=== PATIENT | female | born 1955 | race Caucasian/White ===

== ENCOUNTER 2016-10-16 17:45 | Emergency (ER) | payer MEDICARE, MEDICAID ==
[2016-10-16 17:58] VITALS: BP 117/94
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
== END 2016-10-16 20:34 | disposition home or self-care (01) ==
LOC: ED 17:45
DX: S19.9XXA Unspecified injury of neck, initial encounter (principal); W18.00XA Striking against unspecified object with subsequent fall, initial encounter; F17.210 Nicotine dependence, cigarettes, uncomplicated; Y92.9 Unspecified place or not applicable; N20.0 Calculus of kidney; I10 Essential (primary) hypertension; K21.9 Gastro-esophageal reflux disease without esophagitis; Z88.5 Allergy status to narcotic agent; Z88.0 Allergy status to penicillin
CPT/HCPCS: 99282

== ENCOUNTER 2017-04-11 01:33 | Emergency (ER) | payer MEDICARE, MEDICAID ==
[2017-04-11 03:13] VITALS: BP 138/97
[2017-04-11] MEDS ORDERED: HYDROcodone/ACETAMIN 5-325 MG* 1 TAB PO ONE (04:39)
[2017-04-11] MEDS ORDERED: Tetan/Diph/Pertus SYR(Tdap)* 0.5 ML SYR(BOOSTRIX) use SYR IM ONE (05:00)
[2017-04-11] MEDS ORDERED: Cephalexin CAP* 500 MG PO ONE (05:01)
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
--- NOTE | 2017-04-11 08:13 | RAD ---
HISTORY: Right great toe injury COMPARISONS: None VIEWS: 3, Frontal, lateral, and oblique views of the first digit of the right foot FINDINGS: BONE DENSITY: Normal. BONES: There is no displaced fracture. JOINTS: There is mild osteoarthritis of the first MTP joint and interphalangeal joints ALIGNMENT: There is no dislocation. SOFT TISSUES: Unremarkable. OTHER FINDINGS: None. IMPRESSION: OSTEOARTHRITIS. NO ACUTE OSSEOUS INJURY. IF SYMPTOMS PERSIST, RECOMMEND REPEAT IMAGING.
== END 2017-04-11 05:22 | disposition home or self-care (01) ==
LOC: ED 01:33
DX: S90.212A Contusion of left great toe with damage to nail, initial encounter (principal); S91.202A Unspecified open wound of left great toe with damage to nail, initial encounter; W23.0XXA Caught, crushed, jammed, or pinched between moving objects, initial encounter; Y93.9 Activity, unspecified; Y92.9 Unspecified place or not applicable; Z23 Encounter for immunization; I10 Essential (primary) hypertension; J45.909 Unspecified asthma, uncomplicated; K21.9 Gastro-esophageal reflux disease without esophagitis; F41.9 Anxiety disorder, unspecified; F32.9 Major depressive disorder, single episode, unspecified; Z87.442 Personal history of urinary calculi; Z96.653 Presence of artificial knee joint, bilateral; Z88.6 Allergy status to analgesic agent; Z88.5 Allergy status to narcotic agent; Z91.040 Latex allergy status; Z91.041 Radiographic dye allergy status; Z88.0 Allergy status to penicillin; Z91.013 Allergy to seafood; F17.210 Nicotine dependence, cigarettes, uncomplicated
CPT/HCPCS: 90471; 90715; 99282; A9270-GY

== ENCOUNTER 2017-07-19 19:07 | Observation (INO) | payer MEDICARE, MEDICAID ==
[2017-07-19] MEDS ORDERED: Aspirin Low Dose CHEW TAB* 81 MG PO ONE (20:04)
[2017-07-19] MEDS ORDERED: NS 0.9% 1000 ML* 1,000 ML IV ONE (20:04)
[2017-07-19 20:33] LABS: Hematocrit 42 % (35-47); Hemoglobin 14.4 g/dl (12.0-16.0); Mean Corpuscular HGB Conc 34 g/dl (31-36); Mean Corpuscular Hemoglobin 32 pg (27-31); Mean Corpuscular Volume 93 fL (80-97); Mean Platelet Volume 9 um3 (7.4-10.4); Red Blood Count 4.54 10^6/ul (4.0-5.4); Red Cell Distribution Width 12 % (10.5-15); White Blood Count 7.9 10^3/ul (3.5-10.8)
[2017-07-19 20:47] LABS: Albumin 4.3 g/dL (3.2-5.2); BUN/Creatinine Ratio 22.1 (8-20); Calcium 9.2 mg/dL (8.6-10.3); EGFR Non-African American 76.2 (>60); Globulin 2.6 g/dL (2-4); Potassium 3.5 mmol/L (3.5-5.0); Total Bilirubin 0.6 mg/dL (0.2-1.0); Total Protein 6.9 g/dL (6.4-8.9)
--- NOTE | 2017-07-19 20:49 | RAD ---
Indication: Chest pain. Single frontal view of the chest performed at 2027 hours was reviewed. Comparison is made with previous exam dated June 23, 2015. No mediastinal shift is noted. Heart is of normal size and configuration. Lung ugalde appear clear. IMPRESSION: NO ACTIVE CARDIOPULMONARY DISEASE IS NOTED.
[2017-07-19 21:19] LABS: TSH (Thyroid Stimulating Horm) 1.39 mcIU/mL (0.34-5.60)
[2017-07-19] MEDS ORDERED: Acetaminophen TAB* 325 MG PO PRN (21:50)
[2017-07-19] MEDS ORDERED: HYDROcodone/ACETAMIN 5-325 MG* 1 TAB PO PRN (21:56)
[2017-07-19] MEDS ORDERED: Amitriptyline TAB* 25 MG PO SCH (22:00)
[2017-07-19] MEDS ORDERED: Topiramate TAB(*) 25 MG PO SCH (22:00)
[2017-07-20] MEDS: Heparin VIAL(*) 5000 UNITS/ML VIAL (FIVE THOUSAND) SUBCUT SCH ×2 (00:32→06:55)
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
[2017-07-20 03:09] LABS: HDL Cholesterol 43.9 mg/dL
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
[2017-07-20 08:10] VITALS: BP 135/70
[2017-07-20] MEDS ORDERED: Regadenoson* 0.4 MG/5 ML SYRINGE ONE (08:30)
[2017-07-20] MEDS ORDERED: Aminophylline IV* 25 MG/ML 10 ML VIAL ONE (08:30)
[2017-07-20] MEDS ORDERED: DULoxetine DR CAP* 60 MG CAP.DR PO SCH (09:00)
[2017-07-20] MEDS ORDERED: Gabapentin CAP(*) 300 MG PO SCH (09:00)
[2017-07-20] MEDS ORDERED: busPIRone TAB* 5 MG PO SCH (09:00)
--- NOTE | 2017-07-20 12:18 | RAD ---
INDICATION: Chest pain COMPARISON: Chest x-ray July 19, 2017 TECHNIQUE: SPECT imaging was performed. Rest images were acquired following the intravenous injection of 10 millicuries of technetium 99m tetrofosmin. The patient declined to perform the stress portion of the imaging. FINDINGS: There are no defects on the rest only images. The cardiac chamber size is normal. IMPRESSION: No scintigraphic evidence of fixed defect on the rest only images. ASSESSMENT: Not applicable.
--- NOTE | 2017-07-21 08:55 | DS ---
DISCHARGE SUMMARY: DATE OF ADMISSION: 07/19/17 DATE OF DISCHARGE: 07/20/17 PRIMARY CARE PHYSICIAN: Flo Acevedo NP. ATTENDING WHILE IN THE HOSPITAL: Dr. Mello Barrios * (DICTATED BY FRANKLIN HUTSON) PRIMARY DISCHARGE DIAGNOSES: 1. Anxiety. 2. Chest pain. SECONDARY DISCHARGE DIAGNOSES: 1. Hypertension, 2. Gastroesophageal reflux disease. 3. Osteoarthritis. 4. Traumatic brain injury. 5. Tobacco abuse. MEDICATIONS ON DISCHARGE: 1. [place] 325 one tab p.o. t.i.d. p.r.n. for pain. 2. Meloxicam 50 mg p.o. daily. 3. BuSpar 7.5 mg p.o. b.i.d. 4. Topamax 25 mg p.o. b.i.d. 5. Amitriptyline 12.5 mg p.o. q.h.s. 6. .Duloxetine DR 60 mg p.o. daily. 7. Gabapentin 900 mg p.o. t.i.d. New medication at discharge: None. STUDIES DONE WHILE IN THE HOSPITAL: 1. Chest x-ray from the emergency department on 07/19/17 read as no active cardiopulmonary disease. 2. EKG from 07/19/[address] segment changes, normal axis, normal sinus rhythm. No other abnormalities. 3. Nuclear medicine scan from 07/20/17 read as no scintillographic evidence of fixed defect on rest images. HOSPITAL COURSE: This is a brief description of patient's presentation; for more details please see the history and physical from Dr. Darleen Pack on . Briefly, patient is a 61-year-old female whose past medical history is significant for hypertension, tobacco abuse, GERD and TBA who presented to the emergency room with complaints of chest pain that radiated to her neck. Patient states that she was having a lot of stress at home. The patient had a previous stress test which was negative. Patient was admitted to rule out acute cardiopulmonary process despite low risk for myocardial infarction. Patient was kept overnight n.p.o. with no acute events besides occasional agitation and anxiety. Patient went to the nuclear stress test in the morning, and only completed the rest portion and then declined to complete stress portion. Patient had no chest pain at this time. Patient insisted on going home. Patient said she would follow up with her primary care doctor for a previous appointment today. PHYSICAL EXAM: Patient refused physical exam. DISCHARGE PLAN: Patient will be discharged home to follow up with her primary care doctor and consider full outpatient stress test. Patient was a low risk for cardiac event upon entering the hospital. Patient should work with her primary care doctor, and consider outpatient therapy for controlling her anxiety and her risk factors for [place], such as smoking. ACTIVITY: As tolerated. DIET: Heart healthy. No caffeine. TIME SPENT ON THIS DISCHARGE: Approximately 30 minutes were spent on this discharge; 50 minutes was spent [id number] with the patient discussing the treatment plan. FRANKLIN HUTSON [id number]/CPS #: [id number] GUSTAVO
== END 2017-07-20 10:02 | disposition home or self-care (01) ==
LOC: ED 19:07 → MEDTELE 21:50
PROVIDERS: ADMIT Hospitalist; ATTEND Internal Medicine
DX: F41.9 Anxiety disorder, unspecified (principal); R07.9 Chest pain, unspecified; I10 Essential (primary) hypertension; K21.9 Gastro-esophageal reflux disease without esophagitis; M19.90 Unspecified osteoarthritis, unspecified site; G89.29 Other chronic pain; Z87.820 Personal history of traumatic brain injury; F17.210 Nicotine dependence, cigarettes, uncomplicated; Z88.0 Allergy status to penicillin; Z88.8 Allergy status to other drugs, medicaments and biological substances; R06.02 Shortness of breath; R00.0 Tachycardia, unspecified
CPT/HCPCS: 36415; 71010; 78451; 80053; 80061; 82550; 82553; 83605; 83690; 83735; 83880; 84443; 84484; 85025; 85379; 85610; 85730; 86140; 93005; 96372; 99283; A9270-GY; A9502; G0378; J0280; J1644; J2785

== ENCOUNTER 2017-12-13 22:21 | Emergency (ER) | payer MEDICARE, MEDICAID ==
[2017-12-13] MEDS ORDERED: Aspirin Low Dose CHEW TAB* 81 MG PO ONE (22:53)
[2017-12-13] MEDS ORDERED: Ondansetron INJ* 2 MG/ML VIAL IV ONE (22:56)
[2017-12-13] MEDS ORDERED: Morphine INJ* 4 MG/ML 1 ML SYRINGE (NEW SYRINGE VERSION) IV ONE (22:56)
[2017-12-13 23:58] LABS: ABS Basophils 0 10^3/ul (0-0.2); ABS Eosinophils 0.2 10^3/ul (0-0.6); ABS Lymphocytes 3.1 10^3/ul (1.0-4.8); ABS Monocytes 0.4 10^3/ul (0-0.8); ABS Neutrophils 3.1 10^3/ul (1.5-7.7); ABS Nucleated RBC 0 10^3/ul; Eosinophil % 2.8 % (0-6); Hematocrit 40 % (35-47); Hemoglobin 13.8 g/dl (12.0-16.0); Lymphocyte % 45.5 % (25-47); Mean Corpuscular HGB Conc 35 g/dl (31-36); Mean Corpuscular Hemoglobin 32 pg (27-31); Mean Corpuscular Volume 93 fL (80-97); Mean Platelet Volume 9 um3 (7.4-10.4); Nucleated Red Blood Cells % 0.1; Platelet Count 212 10^3/ul (150-450); Red Blood Count 4.27 10^6/ul (4.0-5.4); Red Cell Distribution Width 12 % (10.5-15); White Blood Count 6.9 10^3/ul (3.5-10.8)
[2017-12-14 00:06] LABS: INR 0.93 (0.77-1.02)
[2017-12-14 00:13] LABS: EGFR Non-African American 77.1 (>60)
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
[2017-12-14 02:33] VITALS: BP 105/57
--- NOTE | 2017-12-14 03:03 | ED ---
Antonino Shah Julia, scribed for Viry Mason MD on 12/14/17 at 0230 . Progress - Progress Note Progress Note: Addendum to initial chart. - EKG/XRAY/CT Comments: Sinus tachycardia, 116 BPM, Nml axis. Nml interval. No ischemic changes. XRAY: chest - No acute process, as per ED Physician. Course/Dx - Course Course Of Treatment: Patient presents with sudden jaw and chest pain that is currently improved. EKG is of no acute concern. CXR is of no acute concern. Patient had a stress test on 07/20/17. Patient is given Zofran, Morphine, and Aspirin. - Diagnoses Provider Diagnoses: Chest pain The documentation as recorded by the Antonino aamya Julia accurately reflects the service I personally performed and the decisions made by Isabella davis Abdul, MD.
--- NOTE | 2017-12-14 07:50 | RAD ---
INDICATION: Chest pain COMPARISON: July 19, 2017 TECHNIQUE: An AP portable view obtained at 2327 hours is submitted. FINDINGS: Bones/Soft Tissues: There are no acute bony findings. Cardiomediastinal: The cardiomediastinal silhouette is normal. Lungs: There are no infiltrates. Pleura: There are no pleural effusions. Other: None IMPRESSION: No active disease.
== END 2017-12-14 02:38 | disposition home or self-care (01) ==
LOC: ED 22:21
DX: R07.9 Chest pain, unspecified (principal); R68.84 Jaw pain; Z86.79 Personal history of other diseases of the circulatory system; Z87.891 Personal history of nicotine dependence
CPT/HCPCS: 36415; 71045; 80053; 82550; 83735; 84443; 84484; 85025; 85610; 85730; 93005; 96374; 96375; 99283; A9270-GY; J2270; J2405

== ENCOUNTER 2017-12-28 22:15 | Emergency (ER) | payer MEDICARE, MEDICAID ==
--- OUTSIDE RECORDS SUMMARY | 2017-12-28 22:39 | XMS REPORT ---
:1955 External Reference #:[id number] Author Organization [facility] Address [address] [address] Phone [phone] Care Team Providers Name Role Phone Fern Sanchez MD Primary Care Physician Unavailable Payers Type Date Identification Numbers Payment Provider Subscriber Medicare Primary Policy Number: [id number] Medicare Hien Portillo PayID: [id number] [address] [place] [address] Medigap Part B Policy Number: [id number] Medicaid Hien Portillo Group Name: 1 [address] PayID: [id number] [place] [address] Problems Date Description Provider Status Onset: 09/13/2016 Fibromyalgia Flo Acevedo NP Active Onset: 09/13/2016 Depressive disorder Flo Acevedo NP Active Family History Date Family Member(s) Problem(s) Comments General No Current Problems in [facility] Siblings 4 Social History Type Date Description Comments Marital Status Occupation Unemployed ETOH Use consumes 1-2 glasses of wine per week Smoking Heavy tobacco smoker (more than 10 cigarettes/day) Recreational Drug Use Denies Drug Use Exercise Type/Frequency Exercises sporadically Allergies, Adverse Reactions, Alerts Date Description Reaction Status Severity Comments Penicillin active 03/20/2016 Sulfamethoxazole/Trimethoprim active 07/15/2016 Codeine active Moderate Medications Medication Date Status Form Strength Qnty SIG Indications Ordering Provider Buspirone HCL 07/30 Active Tablets 5mg 180ta Take Three F41.9 bs Tablets By Cotton, Mouth Two M.D. Times A Day Cyclobenzaprine 03/11 Active Tablets 5mg 45tab Take One M25.511 Flo HCL s Tablet By YOUNG Acevedo Mouth Every 8 Hours as Needed Meloxicam 03/11 Active Tablets 15mg 30tab Take One M25.511 Flo /2016 s Tablet By YOUNG Acevedo Mouth Every Day With Food Nasonex 08/25 Active Suspension 50mcg/Act 17gm two sprays J01.90 Flo each YOUNG Acevedo nostril once daily Proair HFA 03/05 Active Aerosol 108(90Bas 18uni inhale 1-2 J45.20 Flo e) ts puffs by YOUNG Acevedo mcg/Act mouth every 4-6 hours as needed for shortness of breath Amitriptyline 03/05 Active Tablets 25mg 30tab Take One Flo s Tablet By YOUNG Acevedo Mouth Every Night At Bedtime Omeprazole Active Capsules DR 20mg 30cap 1 by mouth Flo / s every day YOUNG Acevedo Acetaminophen Active Capsules 500mg 1 by mouth twice a day as needed Beaver Active Tablets 5-325mg 1 PO tid prn Pain Topiramate Active Tablets 25mg 60tab Take One Flo / s Tablet By YOUGN Acevedo Mouth Twice A Day Duloxetine HCL Active Caps DR 60mg 30cap Take One Flo / Part s Capsule By YOUNG Acevedo Mouth Once Daily Gabapentin Active Capsules 300mg 270ca Take Three Flo /0000 ps Capsules YOUNG Acevedo By Mouth Three Times A Day Meloxicam 01/27 Hx Tablets 7.5mg 30tab Take 1-2 M25.511 Flo s Tablets By YOUNG Acevedo - Mouth Once 03/11 Daily With Food as Needed Naproxen 12/11 Hx Tablets 500mg 14tab 1 tablet M25.511 Flo /2016 s with food YOUNG Acevedo - by mouth 01/27 twice a day Lidocaine 11/11 Hx Ointment 5% 35.44 apply to M25.511 Flo /2016 0gm painful YOUNG Acevedo - areas 12/11 times a day as needed. Buspirone HCL 10/16 Hx Tablets 7.5mg 60tab take one F41.9 Flo s tablet by Kristina, DIRECTOR OF FINANCE - mouth 07/30 twice a /2016 day Levofloxacin 08/25 Hx Tablets 500mg 10tab one by Joshua.90 Flo s mouth rKistina, DIRECTOR OF FINANCE - daily for 09/04 10 Benzonatate 08/25 Hx Capsules 100mg 30cap take one [facility]. Flo s or two Kristina, DIRECTOR OF FINANCE - capsules 09/01 every hours as needed for cough. Fluticasone 08/21 Hx Suspension 50mcg/Act 16uni [place] 2 J01. Flo Propionate ts Sprays In [facility], DIRECTOR OF FINANCE - Each 08/25 Nostril Every Day Fluticasone 07/15 Hx Suspension 50mcg/Act 16uni 2 sprays 01. Flo Propionate ts each Kristina, DIRECTOR OF FINANCE - nostril 07/27 qd. Doxycycline 07/15 Hx Capsules 100mg 20cap one tablet [facility] Flo Hyclate s twice Kristina, DIRECTOR OF FINANCE - daily for 07/25 10 days. Fluconazole 07/15 Hx Tablets 150mg 2tabs one by J01. Flo mouth february Kristina, DIRECTOR OF FINANCE - repeat in 07/18 3 days needed Hydroxyzine 06/02 Hx Capsules 25mg 60cap Take One F41.9 Flo Pamoate s To Two Kristina, DIRECTOR OF FINANCE - Capsules 10/16 By Mouth Four Times A Day as Needed Vistaril 04/13 Hx Capsules 25mg 60cap 1-2 by 1.9 Flo s mouth four Kristina, DIRECTOR OF FINANCE - times 06/02 daily needed Monistat 3 03/20 Hx Cream 4% 1Tube insert 1 N77.1 appplicate Varn, N.P. - r 04/01 intravagin ally hs x 3 nights. Macrobid 03/20 Hx Capsules 100mg 14cap 1 by mouth s twice a Varn, N.P. - day for 7 No Active 03/05 Hx Unknown Medications /2015 - 03/05 Maxalt-[employer] 05/15 Hx Tablets 10mg 18tab 1 po prn Sivananda, Dispers s february repeat MD Jose Antonio - q 2 hours, 03/05 max tabs/day Omeprazole/Sodiu 05/15 Hx Capsules 20-1100mg Sivananda, m Bicarbonate PoMD norah - 05/15 Omeprazole 05/[address] 20mg 30cap 1 po qd Sivananda, s PoMD norah - 03/05 Gabapentin 05/15 Hx Capsules 300mg 90cap 1 po tid Sivananda, s PoopalMD - 03/05 Propranolol HCL 05/15 Hx Tablets 60mg 30tab 1 po qd Sivananda, s MD Jose Antonio - 03/05 Cymbalta 05/[address] 60mg 30cap 1 po qd Lisaananda, Part s MD Jose Antonio - 03/05 Celebrex 05/15 Hx Capsules 200mg 30cap 1 po qd Lisaananda, s MD Jose Antonio - 03/05 Nortriptyline 05/15 Hx Capsules 25mg 30cap 2 po qhs Sivananda, HCL s PoMD norah - 03/05 Topiramate 05/15 Hx Tablets 100mg Lisaananda, PoMD norah - 03/05 Cephalexin 05/15 Hx Capsules 500mg 21cap tid po Lisaananda, s MD Jose Antonio - 03/05 Hydrocodone-Acet 05/15 Hx Tablets 5/500mg 100ta 1-2 po qid Ludmila, aminophen /2009 bs prn MD Jose Antonio - 03/05 Albuterol 05/15 Hx 1unit 2 puffs po Calvinnda, Inhaler /2009 s qid prn MD Jose Antonio - 03/05 Advair Diskus 05/15 Hx Aerosol 100-50mcg 1unit 1 Lisaanandclaire, /2009 /Dose s inhalation MD Jose Antonio - twice 03/05 daily Diazepam 0000 Hx Tablets 10mg 3tabs one po two Unknown /0000 hours - prior to 03/05 mri, february repeat every one hour if needed prior to mri. Aspirin 81 Low 0000 Hx Chewtabs 81mg Unknown Dose /0000 - 08/30 Immunizations CPT Code Status Date Vaccine Lot # [id number] Given 07/07/2017 Influenza Virus Vaccine, Quadrivalent, Split, Preservative Free [id number] Given 06/04/2016 Flu Vaccine NOS Vital Signs Date Vital Result Comment 12/16/2017 Weight 201.75 lb Heart Rate 93 /min BP Systolic 136 mmHg BP Diastolic 82 mmHg Body Temperature 98.0 F O2 % BldC Oximetry 98 % 08/30/2017 Weight 204.00 lb Heart Rate 97 /min BP Systolic 124 mmHg BP Diastolic 80 mmHg Body Temperature 97.3 F O2 % BldC Oximetry 96 % 07/30/2017 Weight 196.00 lb Heart Rate 104 /min BP Systolic Sitting 132 mmHg BP Diastolic Sitting 78 mmHg Body Temperature 97.7 F O2 % BldC Oximetry 97 % 07/20/2017 Height 63 inches 5'3" Weight 199.00 lb BP Systolic 122 mmHg BP Diastolic 84 mmHg Respiratory Rate 18 /min Body Temperature 96.3 F Pain Level 6 BMI (Body Mass Index) 35.2 kg/m2 04/19/2017 Height 63 inches 5'3" Weight 192.00 lb Heart Rate 100 /min Respiratory Rate 16 /min Pain Level 5 BMI (Body Mass Index) 34.0 kg/m2 03/11/2017 Weight 195.00 lb Heart Rate 111 /min BP Systolic Sitting 136 mmHg BP Diastolic Sitting 88 mmHg O2 % BldC Oximetry 98 % 02/17/2017 Height 63 inches 5'3" Weight 192.00 lb BP Systolic 127 mmHg BP Diastolic 82 mmHg Respiratory Rate 16 /min Pain Level 10 BMI (Body Mass Index) 34.0 kg/m2 01/27/2017 Weight 192.00 lb Heart Rate 106 /min Body Temperature 98.2 F O2 % BldC Oximetry 98 % 12/11/2016 Heart Rate 103 /min BP Systolic 130 mmHg BP Diastolic 90 mmHg O2 % BldC Oximetry 99 % 11/11/2016 Height 63 inches 5'3" Weight 180.00 lb Heart Rate 106 /min BP Systolic 138 mmHg BP Diastolic 86 mmHg Body Temperature 99.8 F O2 % BldC Oximetry 98 % BMI (Body Mass Index) 31.9 kg/m2 10/16/2016 Weight 189.00 lb Heart Rate 96 /min BP Systolic Sitting 140 mmHg BP Diastolic Sitting 88 mmHg Respiratory Rate 15 /min Body Temperature 98.0 F O2 % BldC Oximetry 98 % 09/09/2016 Height 63 inches 5'3" Weight 185.00 lb Heart Rate 101 /min BP Systolic 130 mmHg BP Diastolic 88 mmHg Body Temperature 98.1 F O2 % BldC Oximetry 98 % BMI (Body Mass Index) 32.8 kg/m2 08/25/2016 Weight 185.00 lb with shoes Heart Rate 96 /min BP Systolic Sitting 130 mmHg BP Diastolic Sitting 92 mmHg Body Temperature 97.1 F O2 % BldC Oximetry 96 % 07/15/2016 Height 63 inches 5'3" Weight 200.00 lb Heart Rate 104 /min BP Systolic 141 mmHg BP Diastolic 86 mmHg Body Temperature 99.3 F O2 % BldC Oximetry 97 % BMI (Body Mass Index) 35.4 kg/m2 05/15/2016 Weight 192.00 lb Heart Rate 104 /min BP Systolic Sitting 144 mmHg BP Diastolic Sitting 90 mmHg Body Temperature 98.6 F O2 % BldC Oximetry 98 % 04/01/2016 Weight 192.00 lb with shoes Heart Rate 107 /min BP Systolic Sitting 124 mmHg BP Diastolic Sitting 86 mmHg Body Temperature 98.3 F O2 % BldC Oximetry 98 % 03/20/2016 Weight 192.00 lb Heart Rate 84 /min BP Systolic Sitting 126 mmHg BP Diastolic Sitting 82 mmHg Respiratory Rate 15 /min Body Temperature 98.5 F O2 % BldC Oximetry 98 % 03/05/2016 Height 62.75 inches 5'2.75" Weight 191.25 lb Heart Rate 100 /min BP Systolic Sitting 134 mmHg BP Diastolic Sitting 98 mmHg O2 % BldC Oximetry 98 % BMI (Body Mass Index) 34.1 kg/m2 05/15/2010 Height 64 inches 5'4" Weight 224.00 lb Heart Rate 72 /min BP Systolic Sitting 120 mmHg BP Diastolic Sitting 80 mmHg BMI (Body Mass Index) 38.4 kg/m2 Results Test Date Test Result H/L Range Note Laboratory test finding 12/13/2017 Partial Thrombo 33.1 seconds 26.0- 36.3 Time PTT Inr/Protime 12/13/2017 Inr 0.93 0.77-1.02 CBC Auto Diff 12/13/2017 White Blood Count 6.9 10^3/uL 3.5-10.8 Red Blood Count 4.27 10^6/uL 4.0-5.4 Hemoglobin 13.8 g/dL 12.0-16.0 Hematocrit 40 % 35-47 Mean Corpuscular Volume 93 fL 80-97 Mean Corpuscular Hemoglobin 32 pg High 27-31 Mean Corpuscular HGB Conc 35 g/dL 31-36 Red Cell Distribution Width 12 % 10.5-15 Platelet Count 212 10^3/uL 150-450 Mean Platelet Volume 9 um3 7.4-10.4 Abs Neutrophils 3.1 10^3/uL 1.5-7.7 Abs Lymphocytes 3.1 10^3/uL 1.0-4.8 Abs Monocytes 0.4 10^3/uL 0-0.8 Abs Eosinophils 0.2 10^3/uL 0-0.6 Abs Basophils 0 10^3/uL 0-0.2 Abs Nucleated RBC 0 10^3/uL Granulocyte % 44.7 % 38-83 Lymphocyte % 45.5 % 25-47 Monocyte % 6.4 % 0-7 Eosinophil % 2.8 % 0-6 Basophil % 0.6 % 0-2 Nucleated Red Blood Cells % 0.1 Laboratory test finding 12/13/2017 Magnesium 2.0 mg/dL 1.9-2.7 Creatine Kinase(CK) 64 U/L 10-223 Troponin-I (TnI) 0.00 ng/mL <0.04 TSH (Thyroid Stim Horm) 1.56 mcIU/mL 0.34-5.60 Comp Metabolic Panel 12/13/2017 Sodium 137 mmol/L 133-145 Potassium 3.6 mmol/L 3.5-5.0 Chloride 107 mmol/L 101-111 Co2 Carbon Dioxide 26 mmol/L 22-32 Anion Gap 4 mmol/L 2-11 Glucose 106 mg/dL High 70-100 Blood Urea Nitrogen 15 mg/dL 6-24 Creatinine 0.76 mg/dL 0.51-0.95 BUN/Creatinine Ratio 19.7 8-20 Calcium 9.1 mg/dL 8.6-10.3 Total Protein 6.2 g/dL Low 6.4-8.9 Albumin 3.9 g/dL 3.2-5.2 Globulin 2.3 g/dL 2-4 Albumin/Globulin Ratio 1.7 1-3 Total Bilirubin 0.60 mg/dL 0.2-1.0 Alkaline Phosphatase 47 U/L 34-104 Alt 10 U/L 7-52 Ast 14 U/L 13-39 Egfr Non- 77.1 >60 Egfr 99.2 >60 1 Laboratory test finding 07/19/2017 TSH (Thyroid Stim Horm) 1.39 mcIU/mL 0.34-5.60 CKMB 07/19/2017 CKMB ng/mL 1.9 ng/mL 0.6-6.3 Laboratory test finding 07/19/2017 Lactic Acid 1.1 mmol/L 0.5-2.0 2 CBC Auto Diff 07/19/2017 White Blood Count 7.9 10^3/uL 3.5-10.8 Red Blood Count 4.54 10^6/uL 4.0-5.4 Hemoglobin 14.4 g/dL 12.0-16.0 Hematocrit 42 % 35-47 Mean Corpuscular Volume 93 fL 80-97 Mean Corpuscular Hemoglobin 32 pg High 27-31 Mean Corpuscular HGB Conc 34 g/dL 31-36 Red Cell Distribution Width 12 % 10.5-15 Platelet Count 211 10^3/uL 150-450 Mean Platelet Volume 9 um3 7.4-10.4 Abs Neutrophils 4.3 10^3/uL 1.5-7.7 Abs Lymphocytes 3.0 10^3/uL 1.0-4.8 Abs Monocytes 0.5 10^3/uL 0-0.8 Abs Eosinophils 0.1 10^3/uL 0-0.6 Abs Basophils 0.1 10^3/uL 0-0.2 Abs Nucleated RBC 0.01 10^3/uL Granulocyte % 53.6 % 38-83 Lymphocyte % 38.0 % 25-47 Monocyte % 6.0 % 1-9 Eosinophil % 1.2 % 0-6 Basophil % 1.2 % 0-2 Nucleated Red Blood Cells % 0.1 Inr/Protime 07/19/2017 Inr 0.90 0.89-1.11 Laboratory test finding 07/19/2017 Partial Thrombo Time 31.9 seconds 26.0 -36.3 PTT D Dimer Quantitative < 200 ng/mL Less Than 230 3 B-Type Natriuretic Peptide BNP 17 pg/mL 4 Comp Metabolic Panel 07/19/2017 Sodium 136 mmol/L 133-145 Potassium 3.5 mmol/L 3.5-5.0 Chloride 107 mmol/L 101-111 Co2 Carbon Dioxide 21 mmol/L Low 22-32 Anion Gap 8 mmol/L 2-11 Glucose 92 mg/dL 70-100 Blood Urea Nitrogen 17 mg/dL 6-24 Creatinine 0.77 mg/dL 0.51-0.95 BUN/Creatinine Ratio 22.1 High 8-20 Calcium 9.2 mg/dL 8.6-10.3 Total Protein 6.9 g/dL 6.4-8.9 Albumin 4.3 g/dL 3.2-5.2 Globulin 2.6 g/dL 2-4 Albumin/Globulin Ratio 1.7 1-3 Total Bilirubin 0.60 mg/dL 0.2-1.0 Alkaline Phosphatase 55 U/L 34-104 Alt 14 U/L 7-52 Ast 19 U/L 13-39 Egfr Non- 76.2 >60 Egfr 98.0 >60 5 Laboratory test finding 07/19/2017 Magnesium 2.0 mg/dL 1.9-2.7 Lipase 16 U/L 11.0-82.0 Creatine Kinase(CK) 51 U/L 10-223 C Reactive Protein 2.00 mg/L < 5.00 6 Troponin-I (TnI) 0.00 ng/mL <0.04 Urine Culture And 05/15/2016 Urine Culture SEE RESULT BELOW 7 Sensitivities Laboratory test finding 05/15/2016 Cytology Non-Ticket Collector Or Usher SEE RESULT BELOW 8 Ua Routine 05/15/2016 Ua Specific [place] 1.025 Ua PH 5 Ua Color leandro Ua Appera cloudy Ua WBC neg Ua Protein 30+ Ua Glucose neg Ua Ketones neg Ua Bilirubin neg Ua Urobilinogen normal Ua Nitrite neg Ua Occult Blood large Urine Culture And 03/20/2016 Urine Culture SEE RESULT BELOW 9 Sensitivities Ua Routine 03/20/2016 Ua Specific [place] 1.020 Ua PH 6 Ua Color dark yellow Ua Appera cloudy Ua WBC trace Ua Protein neg Ua Glucose neg Ua Ketones neg Ua Bilirubin neg Ua Urobilinogen neg Ua Nitrite neg Ua Occult Blood small 1 Because ethnic data is not always readily available, this report includes an eGFR for both -Americans and non- Americans. The National Kidney Disease Education Program (NKDEP) does not endorse the use of the MDRD equation for patients that are not between the ages of 18 and 70, are , have extremes of body size, muscle mass, or nutritional status, or are non- or non-. According to the National Kidney Foundation, irrespective of diagnosis, the stage of the disease is based on the level of kidney function: Stage Description GFR(mL/min/1.73 m(2)) 1 Kidney damage with normal or decreased GFR 90 2 Kidney damage with mild decrease in GFR 60-89 3 Moderate decrease in GFR 30-59 4 Severe decrease in GFR 15-29 5 Kidney failure <15 (or dialysis) 2 [facility] Severe Sepsis and Septic Shock Management Bundle Measure requires all lactic acids initially measuring >2.0 mmol/L be repeated. 3 Please note: The following may produce a false positive D Dimer test: - Rheumatoid factor greater than 60 IU/ml - Plasma hemoglobin greater than 0.05 gm/dl - Bilirubin greater than 50 mg/dl - Lipids greater than 1000 mg/dl - FDP greater than 20 ug/ml 4 >100 to <200 pg/mL: likely compensated congestive heart failure (CHF) 200 to 400 pg/mL: likely moderate CHF >400 pg/mL: likely moderate to severe CHF 5 Because ethnic data is not always readily available, this report includes an eGFR for both -Americans and non- Americans. The National Kidney Disease Education Program (NKDEP) does not endorse the use of the MDRD equation for patients that are not between the ages of 18 and 70, are , have extremes of body size, muscle mass, or nutritional status, or are non- or non-. According to the National Kidney Foundation, irrespective of diagnosis, the stage of the disease is based on the level of kidney function: Stage Description GFR(mL/min/1.73 m(2)) 1 Kidney damage with normal or decreased GFR 90 2 Kidney damage with mild decrease in GFR 60-89 3 Moderate decrease in GFR 30-59 4 Severe decrease in GFR 15-29 5 Kidney failure <15 (or dialysis) 6 Acute inflammation: >10.00 7 SEE RESULT BELOW Name: HIEN PORTILLO : [address]: Flo Acevedo NP Acct: [id number] Unit: [id number] AGE: 60 Location: [facility] Re05/15/16 SEX: F Status: REG REF SPEC: [id number] CYN: 05/15/[address]: Flo Acevedo NP REQ: [id number] RECD: 05/15/16 STATUS: COMP _ SOURCE: URINE SPDESC: ORDERED: Urine Culture COMMENTS: [facility] [id number] Procedure Result Reported Site Urine Culture Final 05/17/16- 08 ML No Growth (<1,000 CFU/mL) * ML - MAIN LAB ([facility]) . END OF REPORT * ML=Testing performed at Main Lab DEPARTMENT OF PATHOLOGY, [address] [place] [address] Epifanio Poole M.D. Director [facility] # [id number] 8 SEE RESULT BELOW Name: HIEN PORTILLO : [address]: Flo Acevedo NP Acct: [id number] Unit: [id number] AGE: 60 Location: [facility] Re05/15/16 SEX: F Status: REG REF SPEC: [id number] CYN: 05/15/16 [facility] DR: Flo Acevedo DIRECTOR OF FINANCE REQ: [id number] RECD: 05/15/16 STATUS: SOUT _ ORDERED: THIN PREP NON G COMMENTS: [id number] FINAL DIAGNOSIS Urine, voided: Negative for malignant cells. 1. URINE CLINICAL HISTORY Hematuria GROSS DESCRIPTION 20 mls of cloudy straw colored urine. Signed (signature on file) Epifanio Poole MD 1154 END OF REPORT * ML=Testing performed at Main Lab DEPARTMENT OF PATHOLOGY, [address] [place] [address] Epifanio Poole M.D. Director [facility] # [id number] 9 SEE RESULT BELOW Name: HIEN PORTILLO : [address]: Bibiana Hemphill NP Acct: [id number] Unit: [id number] AGE: 60 Location: [facility] Re03/20/16 SEX: F Status: REG REF SPEC: [id number] CYN: 03/20/16-[address]: Bibiana Hemphill NP REQ: [id number] RECD: 03/20/16-1699 STATUS: COMP _ SOURCE: URINE SPDESC: ORDERED: Urine Culture COMMENTS: [facility] [address] Procedure Result Reported Site Urine Culture Final 03/21/16- 1533 ML No Growth (<1,000 CFU/mL) * ML - MAIN LAB ([facility]) . END OF REPORT * ML=Testing performed at Main Lab DEPARTMENT OF PATHOLOGY, [address] [place] [address] Epifanio Poole M.D. Director [facility] # [id number] Procedures Date CPT Code Description Status 08/10/2017 Mammogram Completed 07/20/2017 08281 EKG, Interpretation Only Completed 07/21/2013 17301 Rad Exam; Foot Limited Completed 07/21/2013 82962 Rad Exam; Foot Limited Completed 07/21/2013 73526 Rad Exam; Ankle Comp Completed 07/21/2013 15799 Rad Exam; Ankle Comp Completed 07/23/2010 Mammogram Completed Encounters Type Date Location Provider CPT E/M Dx Office Visit 08/30/2017 [facility] Bibiana Hemphill, N.P. 24756 L98.9 10:20a - [place] Office Visit 07/30/2017 [facility] [place] [address] R07.89 1:40p - [place] F41.9 G47.30 Office Visit 07/20/2017 6:37a [facility], FRANKLIN Rodriguez 27920 R07.89 Hospitalists I10 Z72.0 F32.9 Office Visit 07/20/2017 1:45p [facility] Endy Burton, [address]30 M47.896 Of [place] AGRAWAL M25.552 Office Visit 07/19/2017 6:37a [facility], Darleen Pack, 04759 R07.89 Hospitalists M.DDanitza F32.9 Z72.0 I10 Office Visit 04/19/2017 1:45p [facility] Endy Burton 82556 M47.896 Of [place] AGRAWAL M47.26 Office Visit 03/11/2017 2:20p [facility] [place] [address] M25.511 [place] M16.12 Office Visit 02/17/2017 3:00p [facility] Of Endy Burton, 32363 M16.12 [place] AGRAWAL M47.896 Office Visit 01/27/2017 4:00p [facility] [place] [address] M25.511 [place] M25.552 Office Visit 12/11/2016 11:40a [facility] [place] [address] M25.511 [place] Office Visit 11/11/2016 4:00p [facility] [place] [address] M25.511 [place] Office Visit 10/16/2016 9:20a [facility] [place] [address] F41.9 [place] Office Visit 09/09/2016 2:20p [facility] [place] [address] R51 [place] Office Visit 08/25/2016 10:40a [facility] [place] [address] J01.90 [place] F41.9 Office Visit 07/15/2016 3:40p [facility] [place] [address] J01.90 [place] Office Visit 05/15/2016 4:20p [facility] - Flo Kristina, DIRECTOR OF FINANCE 48991 R31.9 [place] Office Visit 04/01/2016 4:00p [facility] - Flo Acevedo, DIRECTOR OF FINANCE 64946 M79.7 [place] M25.50 E55.9 Z13.220 Z13.1 Office Visit 03/20/2016 2:40p [facility] Bibiana Hemphill N.P. 03950 N77.1 - [place] N39.0 N76.0 N30.01 Office Visit 03/05/2016 11:00a [facility] - Flo Kristina, DIRECTOR OF FINANCE 05149 M79.7 [place] J45.20 Office Visit 06/26/2015 7:48a [facility], Kp Cardoso D.O. 43563 977.9 Hospitalists 297.1 311 E958.9 Office Visit 06/25/2015 7:48a [facility], [place] D.O. 60454 977.9 Hospitalists 780.09 E958.9 297.1 Office Visit 06/24/2015 7:47a [facility], [place] Card[place] D.O. 95558 977.9 Hospitalists 311 297.1 E958.9 Office Visit 06/23/2015 7:47a [facility], [place] D.O. 08306 977.9 Hospitalists 530.81 E958.9 311 Office Visit 06/22/2015 7:46a [facility], Kp Cardoso D.O. 98282 427.89 Hospitalists 977.9 E958.9 311 Office Visit 06/22/2015 7:45a [facility], Ryley Lai M.D. 18153 977.9 Hospitalists 530.81 401.9 311 Office Visit 04/20/2014 [facility] [place] [address] 786.50 Assoc, Lopez Rich 401.9 530.81 Office Visit 07/21/2013 10:30a [facility] Of Ezekiel Singh, 47927 718.87 C.M.A. M.D. Office Visit 06/08/2012 3:15p [facility] Mariangel Mccall M.D. 30282 346.90 Services Of [employer] Office Visit 05/15/2010 1:40p DO Not Use [employer] At Jose Antonio Keys, 75904 296.82 Karen AGRAWAL 298.9 714.0 Plan of Care 12/16/2017 - Flo Acevedo, NPR07.89 Other chest painNew Orders:Stress Test, Pharmacologic Nuclear (Lexiscan)Comments:I recommend that you undergo a stress test as we discussed.THis was ordered in July but you declined to have it done. If you develop the chest pain again that is not resolving go back to the ER.F41.9 Anxiety disorder, unspecifiedComments:If you decide that you want to increase the Buspar please let me know. I would recommend that you get established with mental health. You can contact [facility] or [facility].You can contact Dr. Jere Allen to see if he is taking new patients.I will submit the referral.
[2017-12-28] MEDS ORDERED: predniSONE TAB* 20 MG PO ONE (23:51)
[2017-12-28] MEDS ORDERED: Ketorolac INJ* 60 MG/2 ML VIAL IM ONE (23:51)
[2017-12-28] MEDS ORDERED: Albuterol/Ipratropium NEB.SOL* Albuterol 2.5 MG/Ipratropium 0.5 MG 3 ML INH ONE (23:52)
[2017-12-29] MEDS ORDERED: Metoprolol Tartrate IV* 1 MG/ML 5 ML VIAL IV ONE (00:51)
[2017-12-29 01:05] LABS: ABS Basophils 0.1 10^3/ul (0-0.2); ABS Eosinophils 0.1 10^3/ul (0-0.6); ABS Lymphocytes 4.6 10^3/ul (1.0-4.8); ABS Monocytes 0.6 10^3/ul (0-0.8); ABS Neutrophils 3.4 10^3/ul (1.5-7.7); ABS Nucleated RBC 0 10^3/ul; Eosinophil % 1.4 % (0-6); Hematocrit 44 % (35-47); Hemoglobin 15.1 g/dl (12.0-16.0); Lymphocyte % 52.1 % (25-47); Mean Corpuscular HGB Conc 35 g/dl (31-36); Mean Corpuscular Hemoglobin 32 pg (27-31); Mean Corpuscular Volume 92 fL (80-97); Mean Platelet Volume 8.9 um3 (7.4-10.4); Nucleated Red Blood Cells % 0; Platelet Count 224 10^3/ul (150-450); Red Blood Count 4.72 10^6/ul (4.0-5.4); Red Cell Distribution Width 12 % (10.5-15); White Blood Count 8.8 10^3/ul (3.5-10.8)
[2017-12-29 02:24] VITALS: BP 119/87
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
--- NOTE | 2017-12-29 07:56 | RAD ---
INDICATION: Chest pain COMPARISON: December 13, 2017 TECHNIQUE: PA and lateral dual-energy views were obtained. FINDINGS: Bones/Soft Tissues: There are no acute bony findings. Cardiomediastinal: The cardiomediastinal silhouette is normal. Lungs: There are no infiltrates. Pleura: There are no pleural effusions. Other: None IMPRESSION: NO ACTIVE DISEASE.
== END 2017-12-29 02:30 | disposition home or self-care (01) ==
LOC: ED 22:15
DX: R07.89 Other chest pain (principal); J44.1 Chronic obstructive pulmonary disease with (acute) exacerbation; R05 Cough; F41.9 Anxiety disorder, unspecified; Z87.891 Personal history of nicotine dependence; I49.3 Ventricular premature depolarization
CPT/HCPCS: 36415; 71046; 80048; 84484; 85025; 85379; 93005; 94640; 96372; 96374; 99283; A9270-GY; J1885; J3490; J7512

== ENCOUNTER 2018-01-11 17:17 | Emergency (ER) | payer MEDICARE, MEDICAID ==
--- OUTSIDE RECORDS SUMMARY | 2018-01-11 17:43 | XMS REPORT ---
:1955 External Reference #:[id number] Author Organization [facility] Address [address] [address] Phone [phone] Care Team Providers Name Role Phone Fern Sanchez MD Primary Care Physician Unavailable Payers Type Date Identification Numbers Payment Provider Subscriber Medicare Primary Policy Number: [id number] Medicare Hien Portillo PayID: [id number] [address] [place] [address] Medigap Part B Policy Number: [id number] Medicaid Hien Portillo Group Name: 1 [address] PayID: [id number] [place] [address] Problems Date Description Provider Status Onset: 09/13/2016 Fibromyalgia Flo Acevedo NP Active Onset: 09/13/2016 Depressive disorder Flo Acevedo NP Active Family History Date Family Member(s) Problem(s) Comments General No Current Problems in [facility] Siblings 4 Social History Type Date Description [...] Form Strength Qnty SIG Indications Ordering Provider Metoprolol 01/07 Active Tablets 25mg 60tab 1 by mouth Flo Hernández /2018 s twice a day YOUNG Acevedo Buspirone HCL 07/30 Active Tablets 5mg 180ta take three F41.9 Flo bs tablets by YOUNG Acevedo mouth two times a day Cyclobenzaprine 03/11 Active Tablets 5mg 45tab Take [...] by mouth twice a day as needed [place] Active Tablets 5-325mg 1 PO tid prn Pain Duloxetine HCL Active Caps DR 60mg 30cap Take One Flo Part s Capsule By YOUNG Acevedo Mouth Once Daily Gabapentin Active Capsules 300mg 270ca Take Three Flo / ps Capsules By YOUNG Acevedo Mouth Three Times A Day Medical Active Unknown Topiramate Active Tablets 25mg 60tab Take One Flo / s Tablet By YOUNG Acevedo Mouth Twice A Day Meloxicam 01/27 Hx Tablets 7.5mg 30tab Take 1-2 M25.511 Flo s Tablets By YOUNG Acevedo - Mouth Once 03/11 Daily With Food as Needed Naproxen 12/11 Hx Tablets 500mg 14tab 1 tablet M25.511 Flo /2016 s with food YOUNG Acevedo - by mouth 01/27 twice a day /2016 Lidocaine 11/11 Hx Ointment 5% 35.44 apply to M25.511 Flo 0gm painful Kristina, TELEPHONE INSTRUMENT SUPERVISOR - areas three 12/11 times a day /2016 as needed. Buspirone HCL 10/16 Hx Tablets 7.5mg 60tab take one F41.9 Flo s tablet by Kristina TELEPHONE INSTRUMENT SUPERVISOR - mouth twice 07/30 a day Levofloxacin 08/25 Hx Tablets 500mg 10tab one by J01.90 Flo s mouth daily Kristina, TELEPHONE INSTRUMENT SUPERVISOR - for 10 days 09/04 Benzonatate 08/25 Hx Capsules 100mg 30cap take one or Joshua01.90 Flo s two Kristina, TELEPHONE INSTRUMENT SUPERVISOR - capsules 09/01 every hours as needed for cough. Fluticasone 08/21 Hx Suspension 50mcg/Act [facility] [place] 2 J01.90 Flo Propionate ts Sprays In Kristina, TELEPHONE INSTRUMENT SUPERVISOR - Each 08/25 Nostril /2015 Every Day Fluticasone 07/15 Hx Suspension 50mcg/Act 16[facility] 2 sprays J01.90 Flo Propionate ts each Kristina, TELEPHONE INSTRUMENT SUPERVISOR - nostril qd. 07/27 Doxycycline 07/15 Hx Capsules 100mg 20cap one tablet J01.90 Flo Hyclate s twice daily Kristina TELEPHONE INSTRUMENT SUPERVISOR - for 10 07/25 days. Fluconazole 07/15 Hx Tablets 150mg 2tabs one by J01.90 Flo mouth february Kristina TELEPHONE INSTRUMENT SUPERVISOR - repeat in 3 07/18 days needed Hydroxyzine 06/02 Hx Capsules 25mg 60cap Take One To F41.9 Flo Pamoate s Two Kristina TELEPHONE INSTRUMENT SUPERVISOR - Capsules By 10/16 Mouth Times A Day as Needed Vistaril 04/13 Hx Capsules 25mg 60cap 1-2 by F41.9 Flo s mouth four Kristina, TELEPHONE INSTRUMENT SUPERVISOR - times daily 06/02 as needed Monistat 3 03/20 Hx Cream 4% 1Tube insert 1 N77.1 appplicater Joby, - intravagina N.P. 04/01 lly hs x nights. Macrobid 03/20 Hx Capsules 100mg 14cap 1 by mouth s twice a day Joby, - for 7 days N.P. 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 05/15 Hx Tablets 10mg 18tab 1 po prn anand Dispers s february repeat , Jayl, - q 2 hours, 03/05 max tabs/day Omeprazole/Sodiu 05/15 Hx Capsules 20-1100mg Sivananda m Bicarbonate , Poopal, - 05/15 Omeprazole 05/[address] 20mg 30cap 1 po qd anand s , Poopal, - 03/05 Gabapentin 05/15 Hx Capsules 300mg 90cap 1 po tid anand s Poopal, - 03/05 Propranolol HCL 05/15 Hx Tablets 60mg 30tab 1 po qd s Poopal, - 03/05 Cymbalta 05/[address] 60mg 30cap 1 po qd Part s Poopal, - 03/05 Celebrex 05/15 Hx Capsules 200mg 30cap 1 po qd s Poopal, - 03/05 Nortriptyline 05/15 Hx Capsules 25mg 30cap 2 po qhs ananda HCL s Poopal, - 03/05 Topiramate 05/15 Hx Tablets 100mg , Poopal, - 03/05 Cephalexin 05/15 Hx Capsules 500mg 21cap tid po nd s Poopal, - 03/05 Hydrocodone-Acet 05/15 Hx Tablets 5/500mg 100ta 1-2 po qid Sivananda aminophen bs prn , Poopal, - 03/05 Albuterol 05/15 Hx 1unit 2 puffs po Sivananda Inhaler s qid prn , Poopal, - 03/05 Advair Diskus 05/15 Hx Aerosol 100-50mcg 1unit 1 ananda /Dose s inhalation , Poopal, - twice daily 03/05 Diazepam 00 Hx Tablets 10mg 3tabs one po two Unknown /0000 hours prior - to mri, february 06 every one hour if needed prior to mri. Aspirin 81 Low Hx Chewtabs 81mg Unknown Dose / - 08/30 Medications Administered in Office Medication Date Status Form Strength Qnty SIG Indications Ordering Provider Inj, 12/27/ Administered Injection Jere Chahal Regadenoson, 0.1 2017 DO Sandeep MG FACC Aminophylline 12/27/ Administered Injection Jere SDanitza 2017 DO Sandeep FACC Technetium TC 12/27/ Administered Injection Jere SDanitza 99M Tetrofosmin, 2017 DO Sandeep Per Unit Dose Up FACC To 40 Millicuries Immunizations CPT Code Status Date Vaccine Lot # 61737 Given 07/07/2017 Influenza Virus Vaccine, Quadrivalent, Split, Preservative Free [id number] Given 06/04/2016 Flu Vaccine NOS Vital Signs Date Vital Result Comment 01/10/2018 Weight 202.75 lb Heart Rate 90 /min BP Systolic 132 mmHg BP Diastolic 72 mmHg Body Temperature 98.3 F O2 % BldC Oximetry 97 % 12/16/2017 Weight 201.75 lb Heart Rate 93 [...] Test Date Test Result H/L Range Note Basic Metabolic Panel 12/29/2017 Sodium 140 mmol/L 139-145 Potassium 4.2 mmol/L 3.5-5.0 Chloride 108 mmol/L 101-111 Co2 Carbon Dioxide 24 mmol/L 22-32 Anion Gap 8 mmol/L 2-11 Glucose 117 mg/dL High 70-100 Blood Urea Nitrogen 13 mg/dL 6-24 Creatinine 0.77 mg/dL 0.51-0.95 BUN/Creatinine Ratio 16.9 8-20 Calcium 9.7 mg/dL 8.6-10.3 Egfr Non- 76.0 >60 Egfr 97.7 >60 1 Laboratory test 12/29/2017 D Dimer Quantitative < 200 ng/mL Less Than 230 2 finding Laboratory test 12/29/2017 Troponin-I (TnI) 0.00 ng/mL <0.04 finding CBC Auto Diff 12/29/2017 White Blood Count 8.8 10^3/uL 3.5-10.8 Red Blood Count 4.72 10^6/uL 4.0-5.4 Hemoglobin 15.1 g/dL 12.0-16.0 Hematocrit 44 % 35-47 Mean Corpuscular Volume 92 fL 80-97 Mean Corpuscular Hemoglobin 32 pg High 27-31 Mean Corpuscular HGB Conc 35 g/dL 31-36 Red Cell Distribution Width 12 % 10.5-15 Platelet Count 224 10^3/uL 150-450 Mean Platelet Volume 8.9 um3 7.4-10.4 Abs Neutrophils 3.4 10^3/uL 1.5-7.7 Abs Lymphocytes 4.6 10^3/uL 1.0-4.8 Abs Monocytes 0.6 10^3/uL 0-0.8 Abs Eosinophils 0.1 10^3/uL 0-0.6 Abs Basophils 0.1 10^3/uL 0-0.2 Abs Nucleated RBC 0 10^3/uL Granulocyte % 38.2 % 38-83 Lymphocyte % 52.1 % High 25-47 Monocyte % 7.3 % High 0-7 Eosinophil % 1.4 % 0-6 Basophil % 1.0 % 0-2 Nucleated Red Blood Cells % 0 Order 12/27/2017 Stress Test, <pending> Pharmacologic Nuclear (Lexiscan) Laboratory test 12/13/2017 Partial Thrombo Time 33.1 seconds 26.0-36.3 finding PTT CBC Auto Diff 12/13/2017 White Blood Count [...] 0-2 Nucleated Red Blood Cells % 0.1 Comp Metabolic Panel 12/13/2017 Sodium 137 mmol/L [...] Egfr Non- 77.1 >60 Egfr 99.2 >60 3 Inr/Protime 12/13/2017 Inr 0.93 0.77-1.02 Laboratory test finding 12/13/2017 Magnesium 2.0 mg/dL 1.9-2.7 Creatine Kinase(CK) 64 U/L 10-223 Troponin-I (TnI) 0.00 ng/mL <0.04 TSH (Thyroid Stim Horm) 1.56 mcIU/mL 0.34-5.60 Laboratory test finding 07/19/2017 TSH (Thyroid Stim Horm) 1.39 mcIU/mL 0.34-5.60 CKMB 07/19/2017 CKMB ng/mL 1.9 ng/mL 0.6-6.3 Laboratory test finding 07/19/2017 Lactic Acid 1.1 mmol/L 0.5-2.0 4 CBC Auto Diff 07/19/2017 White Blood Count [...] Quantitative < 200 ng/mL Less Than 230 5 B-Type Natriuretic Peptide BNP 17 pg/mL 6 Comp Metabolic Panel 07/19/2017 Sodium 136 mmol/L [...] Egfr Non- 76.2 >60 Egfr 98.0 >60 7 Laboratory test finding 07/19/2017 Magnesium 2.0 mg/dL 1.9-2.7 Lipase 16 U/L 11.0-82.0 Creatine Kinase(CK) 51 U/L 10-223 C Reactive Protein 2.00 mg/L < 5.00 8 Troponin-I (TnI) 0.00 ng/mL <0.04 Ua Routine 05/15/2016 Ua Specific [place] 1.025 Ua PH 5 Ua Color leandro Ua Appera cloudy Ua WBC neg Ua Protein 30+ Ua Glucose neg Ua Ketones neg Ua Bilirubin neg Ua Urobilinogen normal Ua Nitrite neg Ua Occult Blood large Laboratory test finding 05/15/2016 Cytology Non-Over The Horizon Targeting Supervisor SEE RESULT BELOW 9 Urine Culture And 05/15/2016 Urine Culture SEE RESULT BELOW 10 Sensitivities Urine Culture And 03/20/2016 Urine Culture SEE RESULT BELOW 11 Sensitivities Ua Routine 03/20/2016 Ua Specific [place] 1.020 Ua PH 6 Ua Color dark [...] 5 Kidney failure <15 (or dialysis) 2 Please note: The following may produce a false positive D Dimer test: - Rheumatoid factor greater than 60 IU/ml - Plasma hemoglobin greater than 0.05 gm/dl - Bilirubin greater than 50 mg/dl - Lipids greater than 1000 mg/dl - FDP greater than 20 ug/ml 3 Because ethnic data is not always readily [...] 15-29 5 Kidney failure <15 (or dialysis) 4 [facility] Severe Sepsis and Septic Shock Management Bundle Measure requires all lactic acids initially measuring >2.0 mmol/L be repeated. 5 Please note: The following may produce a false positive D Dimer test: - Rheumatoid factor greater than 60 IU/ml - Plasma hemoglobin greater than 0.05 gm/dl - Bilirubin greater than 50 mg/dl - Lipids greater than 1000 mg/dl - FDP greater than 20 ug/ml 6 >100 to <200 pg/mL: likely compensated congestive heart failure (CHF) 200 to 400 pg/mL: likely moderate CHF >400 pg/mL: likely moderate to severe CHF 7 Because ethnic data is not always readily [...] 15-29 5 Kidney failure <15 (or dialysis) 8 Acute inflammation: >10.00 9 SEE RESULT BELOW Name: HIEN PORTILLO : [address]: Flo Acevedo TELEPHONE INSTRUMENT SUPERVISOR Acct: [id number] Unit: [id number] AGE: 60 Location: [facility] Re05/15/16 SEX: F Status: REG REF SPEC: [id number] CYN: 05/15/[address]: Flo Acevedo TELEPHONE INSTRUMENT SUPERVISOR REQ: [id number] RECD: 05/15/16 STATUS: SOUT _ ORDERED: THIN PREP NON G COMMENTS: [id number] FINAL DIAGNOSIS Urine, voided: Negative for malignant cells. 1. URINE CLINICAL HISTORY Hematuria GROSS DESCRIPTION 20 mls of cloudy straw colored urine. Signed (signature on file) Epifanio Poole MD [id number] END OF REPORT * ML=Testing performed at Main Lab DEPARTMENT OF PATHOLOGY, [address] [place] [address] Epifanio Poole M.D. Director [facility] # [id number] 10 SEE RESULT BELOW Name: FINESSE PORTILLORA : [address]: Flo Acevedo NP Acct: [id number] Unit: [id number] AGE: 60 Location: [facility] Re05/15/16 SEX: F Status: REG REF SPEC: [id number] CYN: 05/15/16-[address]: Flo Acevedo NP REQ: [id number] RECD: 05/15/16 STATUS: COMP _ SOURCE: URINE SPDESC: ORDERED: Urine Culture COMMENTS: [facility] [id number] Procedure Result Reported Site Urine Culture Final 05/17/16- 0809 ML No Growth (<1,000 CFU/mL) * ML - MAIN LAB ([facility]) . END OF REPORT * ML=Testing performed at Main Lab DEPARTMENT OF PATHOLOGY, [address] [place] [address] Epifanio Poole M.D. Director [facility] # [id number] 11 SEE RESULT BELOW Name: HIEN PORTILLO : [address]: Bibiana Hemphill NP Acct: [id number] Unit: [id number] AGE: 60 Location: [facility] Re03/20/16 SEX: F Status: REG REF SPEC: [id number] CYN: 03/20/16-145 [facility] DR: Bibiana Hemphill NP REQ: [id number] RECD: 03/20/16 STATUS: COMP _ SOURCE: URINE SPDESC: ORDERED: Urine Culture COMMENTS: [facility] [id number] Procedure Result Reported Site Urine Culture Final 03/21/16- 1533 ML No Growth (<1,000 CFU/mL) * ML - MAIN LAB ([facility]) . END OF REPORT * ML=Testing performed at Main Lab DEPARTMENT OF PATHOLOGY, [address] [place] [address] Epifanio Poole M.D. Director [facility] # [id number] Procedures Date CPT Code Description Status 12/27/2017 38082 Stress Test Completed 12/27/2017 69195 Myocardial Perfusion Imaging Tomographic (Spect) Completed Multiple Studies 08/10/2017 Mammogram Completed 07/20/2017 45888 EKG, Interpretation Only Completed 07/21/2013 83456 Rad Exam; Foot Limited Completed 07/21/2013 61305 Rad Exam; Foot Limited Completed 07/21/2013 70941 Rad Exam; Ankle Comp Completed 07/21/2013 33232 Rad Exam; Ankle Comp Completed 07/23/2010 Mammogram Completed Encounters Type Date Location Provider CPT E/M Dx Office Visit 12/16/2017 11:40a [facility] [place] [address] R07.89 Ros F41.9 Office Visit 08/30/2017 10:20a [facility] Bibiana Hemphill, N.P. [address] L98.9 - [place] Office Visit 07/30/2017 1:40p [facility] [place] [address] R07.89 - [place] F41.9 G47.30 Office Visit 07/20/2017 6:37a [facility], FRANKLIN Rodriguez [address] R07.89 Hospitalists I10 Z72.0 F32.9 Office Visit 07/20/2017 1:45p [facility] Endy Burton, [address]365 M47.896 Of [place] AGRAWAL M25.552 Office Visit 07/19/2017 6:37a [facility], Darleen Pack, [address]859 R07.89 Hospitalists M.DDanitza F32.9 Z72.0 I10 Office Visit 04/19/2017 1:45p [facility] [place]y [place], [address] M47.896 Of [place] AGRAWAL M47.26 Office Visit 03/11/2017 2:20p [facility] [place] [address] M25.511 [place] M16.12 Office Visit 02/17/2017 3:00p [facility] Of Endy Burton, 38696 M16.12 [place] AGRAWAL M47.896 Office Visit 01/27/2017 4:00p [facility] [place] [address] M25.511 [place] M25.552 Office Visit 12/11/2016 11:40a [facility] [place] [address] M25.511 [place] Office Visit 11/11/2016 4:00p [facility] [place] [address] M25.511 [place] Office Visit 10/16/2016 9:20a [facility] [place] [address] F41.9 [place] Office Visit 09/09/2016 2:20p [facility] [place] [address] R51 [place] Office Visit 08/25/2016 10:40a [facility] [place] [address] J01.90 [place] F41.9 Office Visit 07/15/2016 3:40p [facility] [place] [address] J01.90 [place] Office Visit 05/15/2016 4:20p [facility] - Flo Kristina, TELEPHONE INSTRUMENT SUPERVISOR [address]8557 R31.9 [place] Office Visit 04/01/2016 4:00p [facility] - Flo Acevedo, TELEPHONE INSTRUMENT SUPERVISOR [address]68 M79.7 [place] M25.50 E55.9 Z13.220 Z13.1 Office Visit 03/20/2016 2:40p [facility] Bibiana Joby, N.P. 82428 N77.1 - [place] N39.0 N76.0 N30.01 Office Visit 03/05/2016 11:00a [facility] - Flo Kristina, TELEPHONE INSTRUMENT SUPERVISOR [address]79 M79.7 [place] J45.20 Office Visit 06/26/2015 7:48a [facility], [place] Cardoso D.O. 72263 977.9 Hospitalists 297.1 311 E958.9 Office Visit 06/25/2015 7:48a [facility], [place] D.O. 52128 977.9 Hospitalists 780.09 E958.9 297.1 Office Visit 06/24/2015 7:47a [facility], [place] D.O. 67305 977.9 Hospitalists 311 297.1 E958.9 Office Visit 06/23/2015 7:47a [facility], [place] D.O. 35676 977.9 Hospitalists 530.81 E958.9 311 Office Visit 06/22/2015 7:46a [facility], [place] Card[place] D.O. 14764 427.89 Hospitalists 977.9 E958.9 311 Office Visit 06/22/2015 7:45a [facility], Ryley Lai M.D. 51913 977.9 Hospitalists 530.81 401.9 311 Office Visit 04/20/2014 11:03a [facility] [place], [address] 786.50 Assoc, Lopez Rich 401.9 530.81 Office Visit 07/21/2013 10:30a [facility] Ezekiel Singh, 11140 718.87 C.MOsito Rich Office Visit 06/08/2012 3:15p [facility] Mariangel Mcclal M.D. 95183 346.90 Services Of [facility] Office Visit 05/15/2010 1:40p DO Not Use [facility] Antonio Keys, 56777 296.82 Karen AGRAWAL 298.9 714.0 Plan of Care Future Appointment(s):01/12/2018 3:00 pm - Im Nurse Holter Monitor at [facility] - Ayyjgoruc37/10/2018 3:00 pm - Im Nurse Holter Monitor at [facility] - Bqxgyflan75/09/2018 - Flo Acevedo NPI49.9 Cardiac arrhythmia, unspecifiedNew Orders:Holter MonitorComments:When in the ER it was noted that you had a lot of PVCs, or extra beats. I have ordered a holter monitor to further evaluate. Continue taking the metoprolol twice daily.J44.9 Chronic obstructive pulmonary disease, unspecifiedComments:If you find that you are needing the ProAir more than 4 times a week please let me know.R07.82 Intercostal painComments:You can use the Biofreeze on the area of pain. You can use ice also.Continue taking the meloxicam with food.
[2018-01-11] MEDS ORDERED: Aspirin 81 mg CHEW TAB* 81 MG TAB.CHEW PO ONE (18:29)
[2018-01-11 18:41] LABS: ABS Basophils 0.1 10^3/ul (0-0.2); ABS Eosinophils 0.2 10^3/ul (0-0.6); ABS Lymphocytes 2.8 10^3/ul (1.0-4.8); ABS Monocytes 0.5 10^3/ul (0-0.8); ABS Nucleated RBC 0 10^3/ul; Eosinophil % 1.9 % (0-6); Hematocrit 47 % (35-47); Hemoglobin 16.1 g/dl (12.0-16.0); Lymphocyte % 32.5 % (25-47); Mean Corpuscular HGB Conc 35 g/dl (31-36); Mean Corpuscular Hemoglobin 32 pg (27-31); Mean Corpuscular Volume 93 fL (80-97); Mean Platelet Volume 8.6 um3 (7.4-10.4); Nucleated Red Blood Cells % 0; Platelet Count 244 10^3/ul (150-450); Red Blood Count 5.02 10^6/ul (4.0-5.4); Red Cell Distribution Width 13 % (10.5-15); White Blood Count 8.6 10^3/ul (3.5-10.8)
--- NOTE | 2018-01-11 18:50 | RAD ---
Indication: Sudden onset epigastric pain radiating to the LEFT jaw. Associated shortness of breath and diaphoresis. History of tobacco use. Comparison: December 28, 2017 Technique: Upright AP 1834 hours Report: Elevated lung volumes based on correlation with the prior exam with increased AP thoracic diameter. Clear lungs and pleural spaces. Negative for pneumothorax. The heart, pulmonary vasculature, and mediastinal contours are unremarkable. Negative for free air beneath the diaphragm. Postsurgical change of bilateral AC joint resection or potentially posttraumatic osteolysis. Surgical anchor at the RIGHT humeral head. Probable calcific tendinopathy at the LEFT rotator cuff. IMPRESSION: Stigmata of probable chronic obstructive pulmonary disease. No acute cardiopulmonary process evident.
[2018-01-11 19:00] LABS: EGFR Non-African American 67.8 (>60)
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
[2018-01-11 22:53] VITALS: BP 115/75
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
== END 2018-01-11 22:56 | disposition home or self-care (01) ==
LOC: ED 17:17
DX: R07.9 Chest pain, unspecified (principal); R42 Dizziness and giddiness; Z87.891 Personal history of nicotine dependence
CPT/HCPCS: 36415; 71045; 80053; 83605; 84484; 85025; 93005; 99284; A9270-GY

== ENCOUNTER 2018-01-15 20:10 | Emergency (ER) | payer MEDICARE, MEDICAID ==
[2018-01-15 21:43] LABS: Urine Appearance Cloudy; Urine Blood 1+ (Negative); Urine Color Yellow; Urine Ketones Negative (Negative); Urine Protein Negative (Negative); Urine Specific Gravity 1.012 (1.010-1.030); Urine Urobilinogen Negative (Negative)
[2018-01-15 22:21] LABS: ABS Basophils 0 10^3/ul (0-0.2); ABS Eosinophils 0.1 10^3/ul (0-0.6); ABS Lymphocytes 2.4 10^3/ul (1.0-4.8); ABS Monocytes 0.6 10^3/ul (0-0.8); ABS Neutrophils 6.5 10^3/ul (1.5-7.7); ABS Nucleated RBC 0 10^3/ul; Eosinophil % 0.7 % (0-6); Hematocrit 42 % (35-47); Hemoglobin 14.2 g/dl (12.0-16.0); Lymphocyte % 25.2 % (25-47); Mean Corpuscular HGB Conc 34 g/dl (31-36); Mean Corpuscular Hemoglobin 32 pg (27-31); Mean Corpuscular Volume 94 fL (80-97); Mean Platelet Volume 8.5 um3 (7.4-10.4); Nucleated Red Blood Cells % 0.1; Platelet Count 209 10^3/ul (150-450); Red Blood Count 4.43 10^6/ul (4.0-5.4); Red Cell Distribution Width 12 % (10.5-15); White Blood Count 9.6 10^3/ul (3.5-10.8)
[2018-01-15 22:29] LABS: EGFR Non-African American 68.7 (>60)
[2018-01-16 00:30] VITALS: BP 130/76
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
== END 2018-01-16 01:00 | disposition home or self-care (01) ==
LOC: ED 20:10
DX: F43.25 Adjustment disorder with mixed disturbance of emotions and conduct (principal); R00.0 Tachycardia, unspecified; N20.0 Calculus of kidney; I10 Essential (primary) hypertension; J45.909 Unspecified asthma, uncomplicated; K21.9 Gastro-esophageal reflux disease without esophagitis; F41.9 Anxiety disorder, unspecified; F32.9 Major depressive disorder, single episode, unspecified; Z91.041 Radiographic dye allergy status; Z91.040 Latex allergy status; Z88.5 Allergy status to narcotic agent; Z91.013 Allergy to seafood; Z87.891 Personal history of nicotine dependence; Z88.0 Allergy status to penicillin
CPT/HCPCS: 36415; 80053; 80307; 80320; 80329; 81003; 81015; 84443; 85025; 87086; 93005; 99285; G0480

== ENCOUNTER 2018-03-26 12:00 | Emergency (ER) | payer MEDICARE, MEDICAID ==
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
--- NOTE | 2018-03-26 13:33 | RAD ---
INDICATION: Fell out of bed. Left hip pain COMPARISON: Left hip February 17, 2017 TECHNIQUE: An AP view of the pelvis and AP views of the hip in neutral and abducted position were obtained FINDINGS: Bones: There are no acute bony findings. Joint spaces: There is minor symmetric osteoarthritic change about each hip. SI joints/symphysis: The SI joints and symphysis are intact. Other: None IMPRESSION: NO ACUTE BONY FINDINGS. MINOR OSTEOARTHRITIC FINDINGS.
[2018-03-26 14:36] VITALS: BP 161/86
== END 2018-03-26 14:34 | disposition home or self-care (01) ==
LOC: ED 12:00
DX: M16.12 Unilateral primary osteoarthritis, left hip (principal); Z79.899 Other long term (current) drug therapy; Z88.0 Allergy status to penicillin; Z88.5 Allergy status to narcotic agent; I10 Essential (primary) hypertension; K21.9 Gastro-esophageal reflux disease without esophagitis; F17.210 Nicotine dependence, cigarettes, uncomplicated
CPT/HCPCS: 99282

== ENCOUNTER 2018-09-04 11:44 | Emergency (ER) | payer MEDICARE, MEDICAID ==
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
[2018-09-04 13:59] VITALS: BP 138/74
== END 2018-09-04 13:53 | disposition home or self-care (01) ==
LOC: ED 11:44
DX: M25.512 Pain in left shoulder (principal); M25.511 Pain in right shoulder; S20.219A Contusion of unspecified front wall of thorax, initial encounter; Y04.2XXA Assault by strike against or bumped into by another person, initial encounter; Y92.039 Unspecified place in apartment as the place of occurrence of the external cause; Z96.653 Presence of artificial knee joint, bilateral; Z91.041 Radiographic dye allergy status; Z91.040 Latex allergy status; Z88.5 Allergy status to narcotic agent; Z88.0 Allergy status to penicillin; Z91.013 Allergy to seafood; F17.210 Nicotine dependence, cigarettes, uncomplicated
CPT/HCPCS: 71045; 99281

== ENCOUNTER 2019-03-02 21:34 | Emergency (ER) | payer MEDICARE, MEDICAID ==
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
--- OUTSIDE RECORDS SUMMARY | 2019-03-02 22:06 | XMS REPORT | Continuity of Care Document ---
:1955 External Reference #:[id number] Author Name [facility] [employer] Care Team Providers Name Role Phone Fern Sanchez MD Primary Care Physician Unavailable Payers Date Identification Numbers Payment Provider Subscriber Policy Number: [id number] Medicare Hien Portillo PayID: [id number] [address] [place] [address] Policy Number: [id number] Medicaid Hien Portillo Group Name: 1 1 [address] PayID: [id number] [place] [address] Problems Active Problems Provider Date Fibromyalgia Flo Acevedo NP Onset: 09/13/2016 Depressive disorder Flo Acevedo NP Onset: 09/13/2016 Family History Date Family Member(s) Observation Comments General No Current Problems in [facility] Siblings 4 Social History Type Date Description Comments Sex Unknown Marital Status Occupation Unemployed ETOH Use consumes 1-2 glasses of wine per week Recreational Drug Use Denies Drug Use Tobacco Use Start: Unknown Light tobacco smoker (10 or fewer cigarettes/day) Smoking Status Reviewed: 02/22/19 Light tobacco smoker (10 or fewer cigarettes/day) Exercise Type/Frequency Exercises sporadically Allergies, Adverse Reactions, Alerts Active Allergies Reaction Severity Comments Date Penicillin Sulfamethoxazole/Trimethoprim 03/20/2016 Codeine Moderate 07/15/2016 Medications Active Medications SIG Qnty Indications Ordering Date Provider Metoprolol Tartrate Take One Tablet 60tabs Flo Acevedo NP 01/07/2018 By Mouth Twice A 25mg Tablets Day Buspirone HCL Take Three 180tabs F41.9 Flo Acevedo NP 07/30/2017 5mg Tablets By Mouth Tablets Twice A Day Meloxicam Take One Tablet 30tabs M25.511 Flo Acevedo NP 03/11/2017 15mg Tablets By Mouth Every Day With Food Nasonex two sprays each 17gm J01.90 Flo Acevedo NP 08/25/2016 50mcg/Act nostril once Suspension daily Proair HFA inhale 1-2 puffs 18units J45.20 Flo Acevedo NP 03/05/2016 108(90Base) by mouth every mcg/Act Aerosol 4-6 hours as needed for shortness of breath Amitriptyline HCL take one tablet 30tabs Flo Acevedo NP 03/05/2016 25mg by mouth every Tablets evening Gabapentin Take Three 270caps Flo Acevedo NP 300mg Capsules By Mouth Capsules Three Times A Day Duloxetine HCL Take One Capsule 30caps Flo Acevedo NP 60mg By Mouth Every Caps DR Part Day Topiramate Take One Tablet 60tabs Flo Acevedo NP 25mg Tablets By Mouth Twice A Day Medical Marijuana Unknown [place] 1 PO tid prn Pain Unknown 5-325mg Tablets Acetaminophen 1 by mouth twice Unknown 500mg a day as needed Capsules Omeprazole 1 by mouth every 30caps Flo Acevedo NP 20mg day Capsules DR History Medications Azithromycin 02/22/19 reports not 6tabs J01.90 Dana Montana, 11/09/2018 - 250mg taking take 2 MD 02/22/2019 Tablets tablets today; then one tablet daily Cyclobenzaprine HCL Take One Tablet By 45tabs M25.511 Flo Acevedo, 2016 - 5mg Mouth Every 8 Hours TANK HOOP BENDER 02/22/2019 Tablets as Needed Meloxicam Take 1-2 Tablets By 30tabs M25.511 Flo Acevedo, 01/27/2017 - 7.5mg Tablets Mouth Once Daily TANK HO[employer]ENDER 03/11/2017 With Food as Needed Naproxen 1 tablet with food 14tabs M25.511 Flo Acevedo, 12/11/2016 - 500mg Tablets by mouth twice a T[employer] HO[employer]ENDER 01/27/2017 day Lidocaine apply to painful 35.440gm M25.511 Flo Acevedo, 11/11/2016 - 5% Ointment areas three times a TANK HOOP [employer]ENDER 12/11/2016 day as needed. Buspirone HCL take one tablet by 60tabs F41.9 Flo Acevedo, 10/16/2016 - 7.5mg mouth twice a day T[employer]ER 07/30/2017 Tablets Levofloxacin one by mouth daily 10tabs J01.90 Floelaine Acevedo, 08/25/2016 - 500mg for 10 days T[employer]ER 09/04/2016 Tablets Benzonatate take one or two 30caps J01.90 Flo Kristina, 08/25/2016 - 100mg capsules every 8 [employer]ANK HO[employer]ENDER 09/01/2016 Capsules hours as needed for cough. Fluticasone [place] 2 Sprays In 16units J01.90 Flo Kristina 08/21/2016 - Propionate Each Nostril Every TANK HO[employer]ENDER 08/25/2016 50mcg/Act Day Suspension Fluconazole one by mouth may 2tabs J01.90 Floelaine Acevedo, 07/15/2016 - 150mg repeat in 3 days as TANK HO[employer]ENDER 07/18/2016 Tablets needed Doxycycline Hyclate one tablet twice 20caps J01.90 Flo Kristina, 07/15/2016 - daily for 10 days. TANK HOOP BENDER 07/25/2016 100mg Capsules Fluticasone 2 sprays each 16units J01.90 Flo Acevedo, 07/15/2016 - Propionate nostril qd. TANK HOOP BENDER 07/27/2016 50mcg/Act Suspension Hydroxyzine Pamoate Take One To Two 60caps F41.9 Floelaine Acevedo, 06/02/2016 - Capsules By Mouth TANK HOOP [employer]ENDER 10/16/2016 25mg Capsules Four Times A Day as Needed Vistaril 1-2 by mouth four 60caps F41.9 Flo Kristina, 04/13/2016 - 25mg Capsules times daily as TANK HOOP BENDER 06/02/2016 needed Monistat 3 insert 1 1Tube N77.1 Bibiana 03/20/2016 - 4% Cream appplicater Varn, N.P. 04/01/2016 intravaginally hs x 3 nights. Macrobid 1 by mouth twice a 14caps Bibiana 03/20/2016 - 100mg Capsules day for 7 days Varn, N.P. 03/27/2016 No Active Medications Unknown 03/05/2016 - 03/05/2016 Advair Diskus 1 inhalation twice 1units Ludmila, 05/15/2010 - daily Poopal, 03/05/2011 100-50mcg/Dose Aerosol Albuterol Inhaler 2 puffs po qid prn 1units Ludmila, 05/15/2010 - PoopalMD 03/05/2011 Hydrocodone-Acetamino 1-2 po qid prn 100tabs Ludmila, 05/15/2010 - phen PoopalMD 03/05/2011 5/500mg Tablets Cephalexin tid po 21caps Calvinndclaire, 05/15/2010 - 500mg PoopalMD 03/05/2016 Capsules Topiramate Ludmila, 05/15/2010 - 100mg PoopalMD 03/05/2011 Tablets Nortriptyline HCL 2 po qhs 30caps Calvinndclaire, 05/15/2010 - 25mg PoopalMD 03/05/2011 Capsules Celebrex 1 po qd 30caps Calvinndclaire, 05/15/2010 - 200mg Capsules PoopalMD 03/05/2011 Cymbalta 1 po qd 30caps Calvinndclaire, 05/15/2010 - 60mg Caps DR Jose Antonio MD 03/05/2011 Part Propranolol HCL 1 po qd 30tabs Ludmila, 05/15/2010 - 60mg PoopalMD 03/05/2011 Tablets Gabapentin 1 po tid 90caps Calvinndclaire, 05/15/2010 - 300mg PoopalMD 03/05/2011 Capsules Omeprazole 1 po qd 30caps Lisaananda, 05/15/2010 - 20mg PoopalMD 03/05/2011 Capsules Omeprazole/Sodium Ludmila, 05/15/2010 - Bicarbonate PoopaMD sarah beth 05/15/2010 20-1100mg Capsules Maxalt-NURSE TRANSITION 1 po prn february repeat 18tabs Lisaananda, 05/15/2010 - 10mg Tablets q 2 hours, max 3 PoopalMD 03/05/2011 Dispers tabs/day Diazepam one po two hours 3tabs Unknown - 10mg Tablets prior to mri, 03/05/2011 repeat every one hour if needed prior to mri. Aspirin 81 Low Dose Unknown - 08/30/2017 81mg Chewtabs Medications Administered in Office Medication SIG Qnty Indications Ordering Provider Date Inj, Regadenoson, 0.1 MG Jere Hopkins, DO FACC 12/27/2017 Injection Aminophylline Jere Hopkins, DO FACC 12/27/2017 Injection Technetium TC 99M Jere Hopkins, DO FAC 12/27/2017 Tetrofosmin, Per Unit Dose Up To 40 Millicuries Injection Immunizations CPT Code Status Date Vaccine Lot # [id number] Given 07/07/2017 Influenza Virus Vaccine, Quadrivalent, Split, Preservative Free [id number] Given 06/04/2016 Flu Vaccine NOS Vital Signs Date Vital Result Comment 02/22/2019 4:30pm Height 63 inches 5'3" Weight 197.00 lb Heart Rate 100 /min BP Systolic Sitting 147 mmHg BP Diastolic Sitting 98 mmHg BP Systolic Recheck 128 mmHg BP Diastolic Recheck 84 mmHg Body Temperature 97.6 F O2 % BldC Oximetry 97 % BMI (Body Mass Index) 34.9 kg/m2 11/09/2018 10:54am Height 63 inches 5'3" Weight 194.00 lb Heart Rate 105 /min BP Systolic Sitting 127 mmHg BP Diastolic Sitting 74 mmHg Body Temperature 98.8 F O2 % BldC Oximetry 97 % BMI (Body Mass Index) 34.4 kg/m2 06/01/2018 11:13am Height 63 inches 5'3" Heart Rate 89 /min BP Systolic 122 mmHg BP Diastolic 72 mmHg Respiratory Rate 18 /min Body Temperature 98.1 F Pain Level 2 05/24/2018 2:03pm Height 63 inches 5'3" Pain Level 6 05/13/2018 1:28pm Height 63 inches 5'3" Weight 199.25 lb Heart Rate 80 /min BP Systolic Sitting 130 mmHg BP Diastolic Sitting 72 mmHg O2 % BldC Oximetry 98 % BMI (Body Mass Index) 35.3 kg/m2 01/10/2018 4:47pm Weight 202.75 lb Heart Rate 90 /min BP Systolic 132 mmHg BP Diastolic 72 mmHg Body Temperature 98.3 F O2 % BldC Oximetry 97 % 12/16/2017 11:38am Weight 201.75 lb Heart Rate 93 /min BP Systolic 136 mmHg BP Diastolic 82 mmHg Body Temperature 98.0 F O2 % BldC Oximetry 98 % 08/30/2017 10:31am Weight 204.00 lb Heart Rate 97 /min BP Systolic 124 mmHg BP Diastolic 80 mmHg Body Temperature 97.3 F O2 % BldC Oximetry 96 % 07/30/2017 1:32pm Weight 196.00 lb Heart Rate 104 /min BP Systolic Sitting 132 mmHg BP Diastolic Sitting 78 mmHg Body Temperature 97.7 F O2 % BldC Oximetry 97 % 07/20/2017 2:01pm Height 63 inches 5'3" Weight 199.00 lb BP Systolic 122 mmHg BP Diastolic 84 mmHg Respiratory Rate 18 /min Body Temperature 96.3 F Pain Level 6 BMI (Body Mass Index) 35.2 kg/m2 04/19/2017 1:36pm Height 63 inches 5'3" Weight 192.00 lb Heart Rate 100 /min Respiratory Rate 16 /min Pain Level 5 BMI (Body Mass Index) 34.0 kg/m2 03/11/2017 2:38pm Weight 195.00 lb Heart Rate 111 /min BP Systolic Sitting 136 mmHg BP Diastolic Sitting 88 mmHg O2 % BldC Oximetry 98 % 02/17/2017 3:51pm Height 63 inches 5'3" Weight 192.00 lb BP Systolic 127 mmHg BP Diastolic 82 mmHg Respiratory Rate 16 /min Pain Level 10 BMI (Body Mass Index) 34.0 kg/m2 01/27/2017 3:59pm Weight 192.00 lb Heart Rate 106 /min Body Temperature 98.2 F O2 % BldC Oximetry 98 % 12/11/2016 11:38am Heart Rate 103 /min BP Systolic 130 mmHg BP Diastolic 90 mmHg O2 % BldC Oximetry 99 % 11/11/2016 4:02pm Height 63 inches 5'3" Weight 180.00 lb Heart Rate 106 /min BP Systolic 138 mmHg BP Diastolic 86 mmHg Body Temperature 99.8 F O2 % BldC Oximetry 98 % BMI (Body Mass Index) 31.9 kg/m2 10/16/2016 9:21am Weight 189.00 lb Heart Rate 96 /min BP Systolic Sitting 140 mmHg BP Diastolic Sitting 88 mmHg Respiratory Rate 15 /min Body Temperature 98.0 F O2 % BldC Oximetry 98 % 09/09/2016 2:06pm Height 63 inches 5'3" Weight 185.00 lb Heart Rate 101 /min BP Systolic 130 mmHg BP Diastolic 88 mmHg Body Temperature 98.1 F O2 % BldC Oximetry 98 % BMI (Body Mass Index) 32.8 kg/m2 08/25/2016 10:39am Weight 185.00 lb with shoes Heart Rate 96 /min BP Systolic Sitting 130 mmHg BP Diastolic Sitting 92 mmHg Body Temperature 97.1 F O2 % BldC Oximetry 96 % 07/15/2016 3:46pm Height 63 inches 5'3" Weight 200.00 lb Heart Rate 104 /min BP Systolic 141 mmHg BP Diastolic 86 mmHg Body Temperature 99.3 F O2 % BldC Oximetry 97 % BMI (Body Mass Index) 35.4 kg/m2 05/15/2016 4:25pm Weight 192.00 lb Heart Rate 104 /min BP Systolic Sitting 144 mmHg BP Diastolic Sitting 90 mmHg Body Temperature 98.6 F O2 % BldC Oximetry 98 % 04/01/2016 4:14pm Weight 192.00 lb with shoes Heart Rate 107 /min BP Systolic Sitting 124 mmHg BP Diastolic Sitting 86 mmHg Body Temperature 98.3 F O2 % BldC Oximetry 98 % 03/20/2016 2:36pm Weight 192.00 lb Heart Rate 84 /min BP Systolic Sitting 126 mmHg BP Diastolic Sitting 82 mmHg Respiratory Rate 15 /min Body Temperature 98.5 F O2 % BldC Oximetry 98 % 03/05/2016 10:49am Height 62.75 inches 5'2.75" Weight 191.25 lb Heart Rate 100 /min BP Systolic Sitting 134 mmHg BP Diastolic Sitting 98 mmHg O2 % BldC Oximetry 98 % BMI (Body Mass Index) 34.1 kg/m2 05/15/2010 1:09pm Height 64 inches 5'4" Weight 224.00 lb Heart Rate 72 /min BP Systolic Sitting 120 mmHg BP Diastolic Sitting 80 mmHg BMI (Body Mass Index) 38.4 kg/m2 Results Test Date Facility Test Result H/L Range Note Laboratory test 06/15/2018 [facility] Cytology SEE RESULT [address] [place] [address] [phone] Drug Abuse 20 01/19/2018 [facility] Urine Amphetamine Negative [address] ng/[place] [address] [phone] Urine Barbiturates Negative ng/mL 3 Urine Benzodiazepines Negative ng/mL 4 Urine Cocaine Negative ng/mL 5 Urine Phencyclidine Negative ng/mL Cutoff: 25 Urine Tetrahydrocannabinol Presumptive Posi <SEE NOTE> Abnormal Cutoff: 50 6 ng/mL Creatinine, Urine 271.6 mg/dL Specific [place] 1.020 pH 5.7 Oxidants Negative 7 Adulterants Comment Normal Codeine, Ur Not Detected ng/mL Cutoff: 25 8 Koegeze-5-gqks-glucuronide, Ur Not Detected ng/mL 9 Morphine, Ur Not Detected ng/mL Cutoff: 25 10 Wrptmupq-6-qicu-glucuronide, U Not Detected ng/mL 11 6-monoacetylmorphine, Ur Not Detected ng/mL Cutoff: 25 12 Hydrocodone, Ur Present ng/mL Abnormal Cutoff: 25 13 Norhydrocodone, Ur Present ng/mL Abnormal Cutoff: 25 14 Dihydrocodeine, Ur Present ng/mL Abnormal Cutoff: 25 15 Hydromorphone, Ur Present ng/mL Abnormal Cutoff: 25 16 Aegihyfthfvbi2yjiptdguzkbdqlu Present ng/mL Abnormal 17 Oxycodone, Ur Not Detected ng/mL Cutoff: 25 18 Noroxycodone, Ur Not Detected ng/mL Cutoff: 25 19 Oxymorphone, Ur Not Detected ng/mL Cutoff: 25 20 Hpptirynihk-4-amuv-glucuronide Not Detected ng/mL 21 Noroxymorphone, Ur Not Detected ng/mL Cutoff: 25 22 Fentanyl, Ur Not Detected ng/mL Cutoff: 2 23 Norfentanyl, Ur Not Detected ng/mL Cutoff: 2 24 Meperidine, Ur Not Detected ng/mL Cutoff: 25 25 Normeperidine, Ur Not Detected ng/mL Cutoff: 25 26 Naloxone, Ur Not Detected ng/mL Cutoff: 25 27 Sfxomugu-4-mfxp-glucuronide, U Not Detected ng/mL 28 Methadone, Ur Present ng/mL Abnormal Cutoff: 25 29 Eddp, Ur Present ng/mL Abnormal Cutoff: 25 30 Propoxyphene, Ur Not Detected ng/mL Cutoff: 25 31 Norpropoxyphene, Ur Not Detected ng/mL Cutoff: 25 32 Tramadol, Ur Not Detected ng/mL Cutoff: 25 33 O-desmethyltramadol, Ur Not Detected ng/mL Cutoff: 25 34 Tapentadol, Ur Not Detected ng/mL Cutoff: 25 35 N-desmethyltapentadol, Ur Not Detected ng/mL Cutoff: 50 36 Turuxdjhoy-uldg-mahilpqdbcb, U Not Detected ng/mL 37 Buprenorphine, Ur Not Detected ng/mL Cutoff: 5 38 Norbuprenorphine, Ur Not Detected ng/mL Cutoff: 5 39 Norbuprenorphine glucuronide Not Detected ng/mL Cutoff: 20 40 Opioid Interpretation See Comment 41 THC Confirmation 01/19/2018 [facility] Urine Carboxy 56 ng/mL [address] [place] [address] [phone] Urine THC Interpretation Positive. 43 CBC Auto Diff 01/15/2018 [facility] White Blood 9.6 10^3/uL N 3.5-10.[address] [place] [address] [phone] Red Blood Count 4.43 10^6/uL N 4.0-5.4 Hemoglobin 14.2 g/dL N 12.0-16.0 Hematocrit 42 % N 35-47 Mean Corpuscular Volume 94 fL N 80-97 Mean Corpuscular Hemoglobin 32 pg High 27-31 Mean Corpuscular HGB Conc 34 g/dL N 31-36 Red Cell Distribution Width 12 % N 10.5-15 Platelet Count 209 10^3/uL N 150-450 Mean Platelet Volume 8.5 um3 N 7.4-10.4 Abs Neutrophils 6.5 10^3/uL N 1.5-7.7 Abs Lymphocytes 2.4 10^3/uL N 1.0-4.8 Abs Monocytes 0.6 10^3/uL N 0-0.8 Abs Eosinophils 0.1 10^3/uL N 0-0.6 Abs Basophils 0 10^3/uL N 0-0.2 Abs Nucleated RBC 0 10^3/uL Granulocyte % 67.5 % N 38-83 Lymphocyte % 25.2 % N 25-47 Monocyte % 6.2 % N 0-7 Eosinophil % 0.7 % N 0-6 Basophil % 0.4 % N 0-2 Nucleated Red Blood Cells % 0.1 Comp Metabolic Panel 01/15/2018 [facility] Sodium 140 mmol/L N 139-[address] [place] [address] [phone] Potassium 3.6 mmol/L N 3.5-5.0 Chloride 108 mmol/L N 101-111 Co2 Carbon Dioxide 25 mmol/L N 22-32 Anion Gap 7 mmol/L N 2-11 Glucose 116 mg/dL High 70-100 Blood Urea Nitrogen 15 mg/dL N 6-24 Creatinine 0.84 mg/dL N 0.51-0.95 BUN/Creatinine Ratio 17.9 N 8-20 Calcium 9.6 mg/dL N 8.6-10.3 Total Protein 6.8 g/dL N 6.4-8.9 Albumin 4.3 g/dL N 3.2-5.2 Globulin 2.5 g/dL N 2-4 Albumin/Globulin Ratio 1.7 N 1-3 Total Bilirubin 0.50 mg/dL N 0.2-1.0 Alkaline Phosphatase 56 U/L N 34-104 Alt 10 U/L N 7-52 Ast 14 U/L N 13-39 Egfr Non- 68.7 >60 Egfr 88.4 >60 44 Laboratory test 01/15/2018 [facility] Acetaminophen < 15 g/mL [address] [place] [address] [phone] Alcohol < 10 mg/dL N <10 Salicylate < 2.50 mg/dL <30 TSH (Thyroid Stim Horm) 0.64 mcIU/mL N 0.34-5.60 Urinalysis Profile 01/15/2018 [facility] Urine Color Yellow [address] [place] [address] [phone] Urine Appearance Cloudy Urine Specific [place] 1.012 N 1.010-1.030 Urine pH 7.0 N 5-9 Urine Urobilinogen Negative Negative Urine Ketones Negative Negative Urine Protein Negative Negative Urine Leukocytes Negative Negative Urine Blood 1+ Abnormal Negative Urine Nitrite Negative Negative Urine Bilirubin Negative Negative Urine Glucose Negative Negative Urine White Blood Cell Trace(0-5/hpf) Absent Urine Red Blood Cell Trace(0-2/hpf) Absent Urine Bacteria 1+ Abnormal Absent Urine Squamous Epithelial Cell Present Abnormal Absent Urine Amorphous Crystals Present Abnormal Absent Urine Drug 01/15/2018 [facility] Amphetamine Ur None Detected None Detect SCR ED & [address] [place] [address] [phone] Barbiturates Urine Screen None Detected None Detect Benzodiazepine Urine Screen None Detected None Detect Urine Cannabinoids Screen Presumptive Posi <SEE NOTE> Abnormal None Detect 46 Urine Cocaine Screen None Detected None Detect Urine Opiates Screen Presumptive Posi <SEE NOTE> Abnormal None Detect 47 Urine Phencyclidine Screen None Detected None Detect 48 Urine Culture And 01/15/2018 [facility] Urine Culture SEE RESULT [address] [place] [address] [phone] Laboratory test 01/11/2018 [facility] Troponin-I 0.00 ng/mL < 0.[address] (TnI) [place] [address] [phone] Lactic Acid 1.3 mmol/L N 0.5-2.0 50 Comp Metabolic Panel 01/11/2018 [facility] Sodium 140 mmol/L N 139-[address] [place] [address] [phone] Potassium 4.2 mmol/L N 3.5-5.0 Chloride 106 mmol/L N 101-111 Co2 Carbon Dioxide 27 mmol/L N 22-32 Anion Gap 7 mmol/L N 2-11 Glucose 98 mg/dL N 70-100 Blood Urea Nitrogen 12 mg/dL N 6-24 Creatinine 0.85 mg/dL N 0.51-0.95 BUN/Creatinine Ratio 14.1 N 8-20 Calcium 10.1 mg/dL N 8.6-10.3 Total Protein 7.9 g/dL N 6.4-8.9 Albumin 4.9 g/dL N 3.2-5.2 Globulin 3.0 g/dL N 2-4 Albumin/Globulin Ratio 1.6 N 1-3 Total Bilirubin 0.50 mg/dL N 0.2-1.0 Alkaline Phosphatase 69 U/L N 34-104 Alt 13 U/L N 7-52 Ast 19 U/L N 13-39 Egfr Non- 67.8 >60 Egfr 87.2 >60 51 CBC Auto Diff 01/11/2018 [facility] White Blood 8.6 10^3/uL N 3.5-10.[address] [place] [address] [phone] Red Blood Count 5.02 10^6/uL N 4.0-5.4 Hemoglobin 16.1 g/dL High 12.0-16.0 Hematocrit 47 % N 35-47 Mean Corpuscular Volume 93 fL N 80-97 Mean Corpuscular Hemoglobin 32 pg High 27-31 Mean Corpuscular HGB Conc 35 g/dL N 31-36 Red Cell Distribution Width 13 % N 10.5-15 Platelet Count 244 10^3/uL N 150-450 Mean Platelet Volume 8.6 um3 N 7.4-10.4 Abs Neutrophils 5.0 10^3/uL N 1.5-7.7 Abs Lymphocytes 2.8 10^3/uL N 1.0-4.8 Abs Monocytes 0.5 10^3/uL N 0-0.8 Abs Eosinophils 0.2 10^3/uL N 0-0.6 Abs Basophils 0.1 10^3/uL N 0-0.2 Abs Nucleated RBC 0 10^3/uL Granulocyte % 58.5 % N 38-83 Lymphocyte % 32.5 % N 25-47 Monocyte % 6.4 % N 0-7 Eosinophil % 1.9 % N 0-6 Basophil % 0.7 % N 0-2 Nucleated Red Blood Cells % 0 Laboratory test 01/11/2018 [facility] Troponin-I (TnI) 0.00 ng/ mL <0.04 finding [address] [place] [address] [phone] Laboratory test 12/29/2017 [facility] Troponin-I (TnI) 0.00 ng/ mL <0.[address] [place] [phone] Basic Metabolic 12/29/2017 [facility] Sodium 140 mmol/L N 139- [address] [place] [phone] [phone] Potassium 4.2 mmol/L N 3.5-5.0 Chloride 108 mmol/L N 101-111 Co2 Carbon Dioxide 24 mmol/L N 22-32 Anion Gap 8 mmol/L N 2-11 Glucose 117 mg/dL High 70-100 Blood Urea Nitrogen 13 mg/dL N 6-24 Creatinine 0.77 mg/dL N 0.51-0.95 BUN/Creatinine Ratio 16.9 N 8-20 Calcium 9.7 mg/dL N 8.6-10.3 Egfr Non- 76.0 >60 Egfr 97.7 >60 52 CBC Auto Diff 12/29/2017 [facility] White Blood 8.8 10^3/uL N 3.5-10.8 [address] [place] [address] [phone] Red Blood Count 4.72 10^6/uL N 4.0-5.4 Hemoglobin 15.1 g/dL N 12.0-16.0 Hematocrit 44 % N 35-47 Mean Corpuscular Volume 92 fL N 80-97 Mean Corpuscular Hemoglobin 32 pg High 27-31 Mean Corpuscular HGB Conc 35 g/dL N 31-36 Red Cell Distribution Width 12 % N 10.5-15 Platelet Count 224 10^3/uL N 150-450 Mean Platelet Volume 8.9 um3 N 7.4-10.4 Abs Neutrophils 3.4 10^3/uL N 1.5-7.7 Abs Lymphocytes 4.6 10^3/uL N 1.0-4.8 Abs Monocytes 0.6 10^3/uL N 0-0.8 Abs Eosinophils 0.1 10^3/uL N 0-0.6 Abs Basophils 0.1 10^3/uL N 0-0.2 Abs Nucleated RBC 0 10^3/uL Granulocyte % 38.2 % N 38-83 Lymphocyte % 52.1 % High 25-47 Monocyte % 7.3 % High 0-7 Eosinophil % 1.4 % N 0-6 Basophil % 1.0 % N 0-2 Nucleated Red Blood Cells % 0 Laboratory test 12/29/2017 [facility] D Dimer < 200 N Less [address] Quantitative ng/mL Than [address] [place] [address] [phone] Order 12/27/2017 [facility] Stress Test, <pending> [address] [place] [address] Nuclear (Lexiscan) [phone] CBC Auto Diff 12/13/2017 [facility] White Blood Count 6.9 N 3.5-10.[address] 10^3/[place] [address] [phone] Red Blood Count 4.27 10^6/uL N 4.0-5.4 Hemoglobin 13.8 g/dL N 12.0-16.0 Hematocrit 40 % N 35-47 Mean Corpuscular Volume 93 fL N 80-97 Mean Corpuscular Hemoglobin 32 pg High 27-31 Mean Corpuscular HGB Conc 35 g/dL N 31-36 Red Cell Distribution Width 12 % N 10.5-15 Platelet Count 212 10^3/uL N 150-450 Mean Platelet Volume 9 um3 N 7.4-10.4 Abs Neutrophils 3.1 10^3/uL N 1.5-7.7 Abs Lymphocytes 3.1 10^3/uL N 1.0-4.8 Abs Monocytes 0.4 10^3/uL N 0-0.8 Abs Eosinophils 0.2 10^3/uL N 0-0.6 Abs Basophils 0 10^3/uL N 0-0.2 Abs Nucleated RBC 0 10^3/uL Granulocyte % 44.7 % N 38-83 Lymphocyte % 45.5 % N 25-47 Monocyte % 6.4 % N 0-7 Eosinophil % 2.8 % N 0-6 Basophil % 0.6 % N 0-2 Nucleated Red Blood Cells % 0.1 Comp Metabolic Panel 12/13/2017 [facility] Sodium 137 mmol/L N 133-145 [address] [place] [address] [phone] Potassium 3.6 mmol/L N 3.5-5.0 Chloride 107 mmol/L N 101-111 Co2 Carbon Dioxide 26 mmol/L N 22-32 Anion Gap 4 mmol/L N 2-11 Glucose 106 mg/dL High 70-100 Blood Urea Nitrogen 15 mg/dL N 6-24 Creatinine 0.76 mg/dL N 0.51-0.95 BUN/Creatinine Ratio 19.7 N 8-20 Calcium 9.1 mg/dL N 8.6-10.3 Total Protein 6.2 g/dL Low 6.4-8.9 Albumin 3.9 g/dL N 3.2-5.2 Globulin 2.3 g/dL N 2-4 Albumin/Globulin Ratio 1.7 N 1-3 Total Bilirubin 0.60 mg/dL N 0.2-1.0 Alkaline Phosphatase 47 U/L N 34-104 Alt 10 U/L N 7-52 Ast 14 U/L N 13-39 Egfr Non- 77.1 >60 Egfr 99.2 >60 54 Laboratory test 12/13/2017 [facility] Magnesium 2.0 mg/dL N 1.9-2.7 finding [address] [place] [address] [phone] Creatine Kinase(CK) 64 U/L N 10-223 Troponin-I (TnI) 0.00 ng/mL <0.04 TSH (Thyroid Stim Horm) 1.56 mcIU/mL N 0.34-5.60 Inr/Protime 12/13/2017 [facility] Inr 0.93 N 0.77-1.[address] [place] [address] [phone] Laboratory test 12/13/2017 [facility] Partial 33.1 seconds N 26.0-36.[address] [place] [address] PTT [phone] Laboratory test 07/19/2017 [facility] Lactic Acid 1.1 mmol/L N 0.5-2.0 [address] [place] [address] [phone] CBC Auto Diff 07/19/2017 [facility] White Blood 7.9 10^3/uL N 3.5-10.[address] [place] [address] [phone] Red Blood Count 4.54 10^6/uL N 4.0-5.4 Hemoglobin 14.4 g/dL N 12.0-16.0 Hematocrit 42 % N 35-47 Mean Corpuscular Volume 93 fL N 80-97 Mean Corpuscular Hemoglobin 32 pg High 27-31 Mean Corpuscular HGB Conc 34 g/dL N 31-36 Red Cell Distribution Width 12 % N 10.5-15 Platelet Count 211 10^3/uL N 150-450 Mean Platelet Volume 9 um3 N 7.4-10.4 Abs Neutrophils 4.3 10^3/uL N 1.5-7.7 Abs Lymphocytes 3.0 10^3/uL N 1.0-4.8 Abs Monocytes 0.5 10^3/uL N 0-0.8 Abs Eosinophils 0.1 10^3/uL N 0-0.6 Abs Basophils 0.1 10^3/uL N 0-0.2 Abs Nucleated RBC 0.01 10^3/uL N Granulocyte % 53.6 % N 38-83 Lymphocyte % 38.0 % N 25-47 Monocyte % 6.0 % N 1-9 Eosinophil % 1.2 % N 0-6 Basophil % 1.2 % N 0-2 Nucleated Red Blood Cells % 0.1 N Inr/Protime 07/19/2017 [facility] Inr 0.90 N 0.89-1.[address] [place] [address] [phone] Laboratory test 07/19/2017 [facility] Partial 31.9 seconds N 26.0-36.[address] Thrombo Time [place] [address] PTT [phone] D Dimer Quantitative < 200 ng/mL N Less Than 230 56 B-Type Natriuretic Peptide BNP 17 pg/mL N 57 Comp Metabolic Panel 07/19/2017 [facility] Sodium 136 mmol/L N [address] [place] [address] [phone] Potassium 3.5 mmol/L N 3.5-5.0 Chloride 107 mmol/L N 101-111 Co2 Carbon Dioxide 21 mmol/L Low 22-32 Anion Gap 8 mmol/L N 2-11 Glucose 92 mg/dL N 70-100 Blood Urea Nitrogen 17 mg/dL N 6-24 Creatinine 0.77 mg/dL N 0.51-0.95 BUN/Creatinine Ratio 22.1 High 8-20 Calcium 9.2 mg/dL N 8.6-10.3 Total Protein 6.9 g/dL N 6.4-8.9 Albumin 4.3 g/dL N 3.2-5.2 Globulin 2.6 g/dL N 2-4 Albumin/Globulin Ratio 1.7 N 1-3 Total Bilirubin 0.60 mg/dL N 0.2-1.0 Alkaline Phosphatase 55 U/L N 34-104 Alt 14 U/L N 7-52 Ast 19 U/L N 13-39 Egfr Non- 76.2 N >60 Egfr 98.0 N >60 58 Laboratory test 07/19/2017 [facility] Magnesium 2.0 mg/dL N 1.9-2.[address] [place] [address] [phone] Lipase 16 U/L N 11.0-82.0 Creatine Kinase(CK) 51 U/L N 10-223 C Reactive Protein 2.00 mg/L N < 5.00 59 Troponin-I (TnI) 0.00 ng/mL N <0.04 Laboratory test 07/19/2017 [facility] TSH (Thyroid 1.39 N 0.34 -5.[address] Stim Horm) mcIU/[place] [address] [phone] CKMB 07/19/2017 [facility] CKMB ng/mL 1.9 ng/mL N 0.6-6.[address] [place] [address] [phone] Urine Culture And 05/15/2016 [facility] Urine SEE RESULT [address] [place] [address] [phone] Ua Routine 05/15/2016 [facility] Ua Specific 1.025 [place] Ua PH 5 Ua Color leandro Ua Appera cloudy Ua WBC neg Ua Protein 30+ Ua Glucose neg Ua Ketones neg Ua Bilirubin neg Ua Urobilinogen normal Ua Nitrite neg Ua Occult Blood large Laboratory test 05/15/2016 [facility] Cytology SEE RESULT [address] [address] [phone] Ua Routine 03/20/2016 [facility] Ua Specific 1.020 [place] Ua PH 6 Ua Color dark yellow Ua Appera cloudy Ua WBC trace Ua Protein neg Ua Glucose neg Ua Ketones neg Ua Bilirubin neg Ua Urobilinogen neg Ua Nitrite neg Ua Occult Blood small Urine Culture And 03/20/2016 [facility] Urine Culture SEE RESULT [address] [place] [address] [phone] 1 SEE RESULT BELOW Name: HIEN PORTILLO : [address]: Katie Lim MD Acct: [id number] Unit: [id number] AGE: 62 Location: [facility] Re06/15/18 SEX: F Status: REG REF SPEC: [id number] CYN: 06/15/18-[address]: Katie Lim MD REQ: [id number] RECD: 06/15/18 STATUS: TRINO LINTON DR: Flo Acevedo TANK HOOP BENDER _ ORDERED: TP IMAGE ANALYS, HPV/Thin Prep COMMENTS: [id number] Negative for Intraepithelial lesion or Malignancy Date Time Test Result Flag (u) Normal Range 06/15/18 1300 @ HPV RNA Negative Negative @ @ The high-risk HPV types detected by the assay include: 16, @ 18, 31, 33, 35, 39, 45, 51, 52, 56, 58, 59, 66, and 68. A. Ectocervical/Endocervical Specimen Adequacy: Satisfactory of evaluation Transformation zone component identified Patient Information: HPV: High risk HPV RNA testing regardless of pap results. Actual Specimen Date: 06/15/18 LMP If Unknown: 2002 Spec Date if unknown: 2014 Post Menopausal?: Y Signed by and Reported on: SHOBHA Pride (ASCP) [id number] This Pap test was evaluated with the assistance of the BrandBackerPrep Test Imaging System. Due to cytologic findings at the criminal justice department chair microscope, comprehensive manual rescreening by a Library Manager may be required. The Pap Smear is a screening test designed to aid in the detection of premalignant and malignant conditions of the uterine cervix. It is not a diagnostic procedure and should not be used as the sole means of detecting cervical cancer. Both false- positive and false- negative reports do occur. Depending on your risk status, a Pap smear should be obtained and evaluated every 1-3 years. END OF REPORT DEPARTMENT OF PATHOLOGY, [address] [place] [address] Epifanio Poole M.D. Director [facility] # [id number] 2 REFERENCE VALUE Cutoff: 500 3 REFERENCE VALUE Cutoff: 200 4 REFERENCE VALUE Cutoff: 100 5 REFERENCE VALUE Cutoff: 150 6 Presumptive Positive Drug confirmation to follow. Presumptive Positive means that the screening method is positive, but the test needs to be run by a confirmatory method before being finalized. ADDITIONAL INFORMATION This report is intended for use in clinical monitoring or management of patients. It is not intended for use in employment-related testing. 7 REFERENCE VALUE Cutoff: 200 mg/L 8 Tylenol 3 9 Metabolite of codeine REFERENCE VALUE Cutoff: 100 10 Krista Plata, Contin; Also a minor metabolite (10%) of codeine and can be seen in low concentrations (<2,000 ng/mL) with poppy seed ingestion. 11 Metabolite of morphine REFERENCE VALUE Cutoff: 100 12 Metabolite of heroin 13 Lortab, [place], Vicodin; Also a very minor metabolite of codeine and impurity (<1%) of oxycodone. 14 Metabolite of hydrocodone 15 Metabolite of hydrocodone 16 Dilaudid, Exalgo; Also a metabolite of hydrocodone and a minor (<5%) metabolite of morphine. 17 Metabolite of hydromorphone REFERENCE VALUE Cutoff: 100 18 Endocet, Percocet, Oxycontin 19 Metabolite of oxycodone 20 Numorphan, Opana; Also a metabolite of oxycodone. 21 Metabolite of oxymorphone REFERENCE VALUE Cutoff: 100 22 Metabolite of oxymorphone 23 Actiq, Duragesic, Fentora 24 Metabolite of fentanyl 25 Demerol 26 Metabolite of meperidine 27 Narcan 28 Metabolite of naloxone REFERENCE VALUE Cutoff: 100 29 Dolophine 30 Metabolite of methadone 31 Darvon, Darvocet 32 Metabolite of propoxyphene 33 Tradol, Ultram, Ultracet 34 Metabolite of tramadol 35 Nucynta 36 Metabolite of tapentadol 37 Metabolite of tapentadol REFERENCE VALUE Cutoff: 100 38 Buprenex, Suboxone 39 Metabolite of buprenorphine 40 Metabolite of buprenorphine 41 Test detected the presence of hydrocodone and several of its metabolites. Suspect use of hydrocodone or possibly hydrocodone and hydromorphone within the past three days. Test detected the presence of methadone and its metabolite (EDDP). Suspect use of methadone within the past seven days. ADDITIONAL INFORMATION This test was developed and its performance characteristics determined by [facility] in a manner consistent with CLIA requirements. This test has not been cleared or approved by the U.S. Food and Drug Administration. Test Performed by: [facility] - [address] [address] 42 REFERENCE VALUE Cutoff: 3.0 43 ADDITIONAL INFORMATION This report is intended for use in clinical monitoring and management of patients. It is not intended for use in employment-related testing. This test was developed and its performance characteristics determined by [facility] in a manner consistent with CLIA requirements. This test has not been cleared or approved by the U.S. Food and Drug Administration. Test Performed by: [facility] - [facility] [address] [place] [address] 44 Because ethnic data is not always readily [...] 15-29 5 Kidney failure <15 (or dialysis) 45 Therapeutic concentration: <50 ug/mL Toxic concentration: >120 ug/mL 46 Presumptive Positive Presumptive positive results are unconfirmed. 47 Presumptive Positive Presumptive positive results are unconfirmed. 48 The urine specimen was tested at the listed cutoffs: Drug class test level (ng/mL) Amphetamines 500 Barbiturates 200 Benzodiazepine metabolites 200 Cocaine metabolites 150 Cannabinoids 50 Opiates 300 Pcp 25 Specimen was received without chain of custody. Results should be used for medical purposes only. 49 SEE RESULT BELOW Name: HIEN PORTILLO : [address]: Ralph Bishop MD Acct: [id number] Unit: [id number] AGE: 62 Location: ED Re01/15/18 SEX: F Status: DEP ER SPEC: [id number] CYN: 01/15/[address]: Ralph Bishop MD REQ: [id number] RECD: 01/15/18 STATUS: FRACISCO LINTON DR: Flo Acevedo TANK HOOP BENDER _ SOURCE: URINE SPDESC: ORDERED: Urine Culture Procedure Result Reported Site Urine Culture Final 01/17/18 0739 ML No Growth (<1,000 CFU/mL) * ML - Main Lab . END OF REPORT DEPARTMENT OF PATHOLOGY, [address] [place] [address] Epifanio Poole M.D. Director [facility] # [id number] [facility] Severe Sepsis and Septic Shock Management Bundle Measure requires all lactic acids initially measuring >2.0 mmol/L be repeated. 51 Because ethnic data is not always readily [...] 15-29 5 Kidney failure <15 (or dialysis) 52 Because ethnic data is not always readily [...] 15-29 5 Kidney failure <15 (or dialysis) 53 Please note: The following may produce a false positive D Dimer test: - Rheumatoid factor greater than 60 IU/ml - Plasma hemoglobin greater than 0.05 gm/dl - Bilirubin greater than 50 mg/dl - Lipids greater than 1000 mg/dl - FDP greater than 20 ug/ml 54 Because ethnic data is not always readily [...] 15-29 5 Kidney failure <15 (or dialysis) 55 [facility] Severe Sepsis and Septic Shock Management Bundle Measure requires all lactic acids initially measuring >2.0 mmol/L be repeated. 56 Please note: The following may produce a false positive D Dimer test: - Rheumatoid factor greater than 60 IU/ml - Plasma hemoglobin greater than 0.05 gm/dl - Bilirubin greater than 50 mg/dl - Lipids greater than 1000 mg/dl - FDP greater than 20 ug/ml 57 >100 to <200 pg/mL: likely compensated congestive heart failure (CHF) 200 to 400 pg/mL: likely moderate CHF >400 pg/mL: likely moderate to severe CHF 58 Because ethnic data is not always readily [...] 15-29 5 Kidney failure <15 (or dialysis) 59 Acute inflammation: >10.00 60 SEE RESULT BELOW Name: HIEN PORTILLO : [address]: Flo Acevedo NP Acct: [id number] Unit: [id number] AGE: 60 Location: [facility] Re05/15/16 SEX: F Status: REG REF SPEC: [id number] CYN: 05/15/[address]: Flo Acevedo NP REQ: [id number] RECD: 05/15/16 STATUS: COMP _ SOURCE: URINE SPDESC: ORDERED: Urine Culture COMMENTS: [facility] [id number] Procedure Result Reported Site Urine Culture Final 05/17/16- 0809 ML No Growth (<1,000 CFU/mL) * ML - MAIN LAB ([facility]) . END OF REPORT * ML=Testing performed at Main Lab DEPARTMENT OF PATHOLOGY, [address] [place] [address] Epifanio Poole M.D. Director [facility] # [id number] 61 SEE RESULT BELOW Name: HIEN PORTILLO : [address]: Flo Acevedo NP Acct: [id number] Unit: [id number] AGE: 60 Location: [facility] Re05/15/16 SEX: F Status: REG REF SPEC: [id number] CYN: 05/15/[address]: Flo Acevedo TANK HOOP BENDER REQ: [id number] RECD: 05/15/16 STATUS: SOUT _ ORDERED: THIN PREP NON G COMMENTS: [id number] FINAL DIAGNOSIS Urine, voided: Negative for malignant cells. 1. URINE CLINICAL HISTORY Hematuria GROSS DESCRIPTION 20 mls of cloudy straw colored urine. Signed (signature on file) Epifanio Poole MD 1154 END OF REPORT * ML=Testing performed at Main Lab DEPARTMENT OF PATHOLOGY, [address] [place] [address] Epifanio Poole M.D. Director [facility] # [id number] 62 SEE RESULT BELOW Name: HIEN PORTILLO : [address]: Bibiana Hemphill NP Acct: [id number] Unit: [id number] AGE: 60 Location: [facility] Re03/20/16 SEX: F Status: REG REF SPEC: [id number] CYN: 03/20/16-4063 [facility] DR: Bibiana Hemphill NP REQ: [id number] RECD: 03/20/16 STATUS: COMP _ SOURCE: URINE SPDESC: ORDERED: Urine Culture COMMENTS: [facility] [place] [id number] Procedure Result Reported Site Urine Culture Final 03/21/16- 1533 ML No Growth (<1,000 CFU/mL) * ML - MAIN LAB ([facility]) . END OF REPORT * ML=Testing performed at Main Lab DEPARTMENT OF PATHOLOGY, [address] [place] [address] Epifanio Poole M.D. Director [facility] # [id number] Procedures Date Code Description Status 05/24/2018 79616 Inc & Removal Foreign Body Subcutaneous Tissues Completed 01/14/2018 70960 Holter Monitor Review (24 hr) review & interp only Completed 01/11/2018 45353 ECG Monitor/Recording W/Visual Superimposition Scanning Completed 12/27/2017 62953 Stress Test Completed 12/27/2017 56544 Myocardial Perfusion Imaging Tomographic (Spect) Completed Multiple Studies 08/10/2017 [id number] Mammogram Completed 07/20/2017 29804 EKG, Interpretation Only Completed 07/21/2013 94942 Rad Exam; Foot Limited Completed 07/21/2013 70115 Rad Exam; Foot Limited Completed 07/21/2013 45281 Rad Exam; Ankle Comp Completed 07/21/2013 20232 Rad Exam; Ankle Comp Completed 07/23/2010 [id number] Mammogram Completed Encounters Type Date Location Provider Dx Diagnosis Office Visit 11/09/2018 [facility] Internal Dana Montana MD J01.90 Acute sinusitis, 11:00a Medicine unspecified R19.7 Diarrhea, unspecified Office Visit 05/24/2018 [facility] S60.450A Superficial 1:45p Services Of Payton Carrillo MD foreign body of right index finger, init encntr Office Visit 05/13/2018 [facility] Internal Flo Acevedo S60.450A Superficial 1:40p Medicine TANK HOOP BENDER foreign body of right index finger, init encntr Office Visit 01/11/2018 [facility] Luis R07.9 Chest pain, 1:18p Assoc,[place] unspecified Hospitalists F41.9 Anxiety disorder, unspecified K21.9 Gastro-esophageal reflux disease without esophagitis G89.29 Other chronic pain Office Visit 01/10/2018 4:20p [facility] Internal Flo Acevedo, I49.9 Cardiac arrhythmia, Medicine TANK HOOP BENDER unspecified J44.9 Chronic obstructive pulmonary disease, unspecified R07.82 Intercostal pain Office Visit 12/16/2017 11:40a [facility] Internal Flo Acevedo NP R07.89 Other chest Medicine pain F41.9 Anxiety disorder, unspecified Office Visit 08/30/2017 10:20a [facility] Internal Bibiana Hemphill, L98.9 Disorder of the Medicine N.P. skin and subcutaneous tissue, unspecified Office Visit 07/30/2017 1:40p [facility] Internal Flo Acevedo NP R07.89 Other chest pain Medicine F41.9 Anxiety disorder, unspecified G47.30 Sleep apnea, unspecified Office Visit 07/20/2017 [facility] Endy Booker M47.896 Other spondylosis, 1:45p Services Of MD Josephine lumbar region Edward.MOsito M25.552 Pain in left hip Office Visit 07/20/2017 6:37a [facility] Luis Vinson, R07.89 Other chest Assoc,pc PA pain Hospitalists I10 Essential (primary) hypertension Z72.0 Tobacco use F32.9 Major depressive disorder, single episode, unspecified Office Visit 07/19/2017 6:37a [facility] Darleen Pack, R07.89 Other chest Assoc,pc D.O. pain Hospitalists F32.9 Major depressive disorder, single episode, unspecified Z72.0 Tobacco use I10 Essential (primary) hypertension Office Visit 04/19/2017 [facility] Endy F M47.896 Other spondylosis, 1:45p Services Of MD Josephine lumbar region C.M.A. M47.26 Other spondylosis with radiculopathy, lumbar region Office Visit 03/11/2017 2:20p [facility] Internal Flo Acevedo, M25.511 Pain in right Medicine T[employer] BENDER shoulder M16.12 Unilateral primary osteoarthritis, left hip Office Visit 02/17/2017 [facility] Endy F M16.12 Unilateral primary 3:00p Services Of MD Josephine osteoarthritis, left C.M.A. hip M47.896 Other spondylosis, lumbar region Office Visit 01/27/2017 4:00p [facility] Internal Flo Acevedo, M25.511 Pain in right Medicine T[employer] BENDER shoulder M25.552 Pain in left hip Office Visit 12/11/2016 11:40a [facility] Internal Flo Acevedo, M25.511 Pain in right Medicine TANK [employer] BENDER shoulder Office Visit 11/11/2016 4:00p [facility] Internal Flo Acevedo, M25.511 Pain in right Medicine TANK HO[employer] BENDER shoulder Office Visit 10/16/2016 9:20a [facility] Internal Floelaine Acevedo, F41.9 Anxiety disorder, Medicine [employer] BENDER unspecified Office Visit 09/09/2016 2:20p [facility] Internal Floelaine Acevedo, R51 Headache Medicine T[employer] BENDER Office Visit 08/25/2016 10:40a [facility] Internal Floelaine Acevedo, J01.90 Acute sinusitis, Medicine TANK [employer] BENDER unspecified F41.9 Anxiety disorder, unspecified Office Visit 07/15/2016 3:40p [facility] Internal Floelaine Acevedo, J01.90 Acute sinusitis, Medicine TANK [employer] BENDER unspecified Office Visit 05/15/2016 4:20p [facility] Internal Floelaine Acevedo, R31.9 Hematuria, Medicine TANK [employer] BENDER unspecified Office Visit 04/01/2016 4:00p [facility] Internal Flo Acevedo, M79.7 Fibromyalgia Medicine TANK [employer] BENDER M25.50 Pain in unspecified joint E55.9 Vitamin D deficiency, unspecified Z13.220 Encounter for screening for lipoid disorders Z13.1 Encounter for screening for diabetes mellitus Office Visit 03/20/2016 2:40p [facility] Internal Bibiana Kenesme, N77.1 Vaginitis , vulvitis Medicine N.P. and vulvovaginitis in dis classd elswhr N39.0 Urinary tract infection, site not specified N76.0 Acute vaginitis N30.01 Acute cystitis with hematuria Office Visit 03/05/2016 11:00a [facility] Internal Flo Acevedo NP M79.7 Fibromyalgia Medicine J45.20 Mild intermittent asthma, uncomplicated Office Visit 06/26/2015 7:48a [facility] Kp Cardoso, 977.9 Poisoning By Assoc,pc D.O. Medicinal Hospitalists Substance Unspec 297.1 Delusional Disorder 311 Depressive Disorder Not Elsewhere Spec E958.9 Suicide & Self Inflicted Injury Unspec Means Office Visit 06/25/2015 7:48a [facility] Kp Cardoso, 977.9 Poisoning By Assoc,pc D.O. Medicinal Hospitalists Substance Unspec 780.09 Consciousness Alteration Other E958.9 Suicide & Self Inflicted Injury Unspec Means 297.1 Delusional Disorder Office Visit 06/24/2015 7:47a [facility] Kp Cardoso, 977.9 Poisoning By Assoc,pc D.O. Medicinal Hospitalists Substance Unspec 311 Depressive Disorder Not Elsewhere Spec 297.1 Delusional Disorder E958.9 Suicide & Self Inflicted Injury Unspec Means Office Visit 06/23/2015 7:47a [facility] Kp Cardoso, 977.9 Poisoning By Assoc,pc D.O. Medicinal Hospitalists Substance Unspec 530.81 Esophageal Reflux E958.9 Suicide & Self Inflicted Injury Unspec Means 311 Depressive Disorder Not Elsewhere Spec Office Visit 06/22/2015 7:46a [facility] Kp Cardoso, 427.89 Cardiac Assoc,pc D.O. Dysrhythmia Other Hospitalists 977.9 Poisoning By Medicinal Substance Unspec E958.9 Suicide & Self Inflicted Injury Unspec Means 311 Depressive Disorder Not Elsewhere Spec Office Visit 06/22/2015 7:45a [facility] Ryley Lai, 977.9 Poisoning By Assoc,pc M.D. Medicinal Hospitalists Substance Unspec 530.81 Esophageal Reflux 401.9 Hypertension Unspec 311 Depressive Disorder Not Elsewhere Spec Office Visit 04/20/2014 11:03a [facility] Joe Higginbotham 786.50 Pain Chest Assoc,charbel LAUREN M.D. Unspec Hospitalists 401.9 Hypertension Unspec 530.81 Esophageal Reflux Office Visit 07/21/2013 10:30a [facility] 718.87 Derangement Joint Services Of Hilario Singh Other Not C.M.A. 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 Unspec 714.0 Rheumatoid Arthritis Plan of Treatment 02/22/2019 - Flo Acevedo NPM25.50 Pain in unspecified jointNew Labs:CBC Auto Diff, Ordered: 02/22/19Comp Metabolic Panel, Ordered: 02/22/19Lyme Screen W/ Reflex To WB, Ordered: 02/22/19Erythrocyte Sed Rate, Ordered: 02/22/19C Reactive Protein, Ordered: 02/22/19Cyclic Citrullinated Pep Igg, Ordered: Rheumatoid Factor, Ordered: 02/22/19Nuclear AB (Naila) By Ifa Igg, Ordered: R53.83 Other fatigueNew Labs:TSH (Thyroid Stim Horm), Ordered: Vitamin B12, Ordered: 02/22/19Nuclear AB (Naila) By Ifa Igg, Ordered: Comments:I am ordering some lab work to evaluate your symptoms. I will notify you of the results.
[2019-03-02] MEDS ORDERED: NS 0.9% 1000 ML** 1,000 ML IV SCH (22:15)
[2019-03-02 22:44] LABS: ABS Eosinophils 0.1 10^3/ul (0-0.6); ABS Lymphocytes 3.2 10^3/ul (1.0-4.8); ABS Monocytes 0.4 10^3/ul (0-0.8); ABS Neutrophils 2.6 10^3/ul (1.5-7.7); Eosinophil % 2.1 %; Hematocrit 41 % (35-47); Hemoglobin 14.1 g/dL (12.0-16.0); Lymphocyte % 49.8 %; Mean Corpuscular HGB Conc 34 g/dL (31-36); Mean Corpuscular Hemoglobin 32 pg (27-31); Mean Corpuscular Volume 95 fL (80-97); Mean Platelet Volume 8.9 fL (7.4-10.4); Nucleated Red Blood Cells % 0.1; Platelet Count 220 10^3/uL (150-450); Red Blood Count 4.36 10^6 /uL (3.70-4.87); Red Cell Distribution Width 13 % (10.5-15); White Blood Count 6.4 10^3/uL (3.5-10.8)
[2019-03-02 22:54] LABS: Activated Partial Thrombo Time 37.1 seconds (26.0-38.0); INR 0.97 (0.82-1.09)
[2019-03-02 23:03] LABS: ALT 12 U/L (7-52); AST 19 U/L (13-39); Albumin 4.2 g/dL (3.2-5.2); Albumin/Globulin Ratio 1.7 (1-3); Alkaline Phosphatase 55 U/L (34-104); Anion Gap 6 mmol/L (2-11); BUN/Creatinine Ratio 15.6 (8-20); Blood Urea Nitrogen 14 mg/dL (6-24); C Reactive Protein < 1.00 mg/L (<8.01); CO2 Carbon Dioxide 26 mmol/L (22-32); Calcium 9.8 mg/dL (8.6-10.3); Chloride 110 mmol/L (101-111); EGFR African American 76.5 (>60); EGFR Non-African American 63.2 (>60); Globulin 2.5 g/dL (2-4); Glucose 103 mg/dL (70-100); Potassium 3.8 mmol/L (3.5-5.0); Sodium 142 mmol/L (135-145); Total Protein 6.7 g/dL (6.4-8.9)
[2019-03-03] MEDS ORDERED: Diphenoxylat/Atrop 2.5-0.025M* 1 TAB PO ONE (01:27)
[2019-03-03 01:44] VITALS: BP 127/78
== END 2019-03-03 01:39 | disposition home or self-care (01) ==
LOC: ED 21:34
DX: R19.7 Diarrhea, unspecified (principal); R10.9 Unspecified abdominal pain; F17.210 Nicotine dependence, cigarettes, uncomplicated; Z88.0 Allergy status to penicillin; I10 Essential (primary) hypertension; K21.9 Gastro-esophageal reflux disease without esophagitis
CPT/HCPCS: 36415; 74176; 80053; 83605; 83690; 84484; 85025; 85610; 85730; 86140; 96360; 96361; 99282

== ENCOUNTER 2019-12-31 18:56 | Emergency (ER) | payer MEDICARE, MEDICAID, OTHER ==
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
[2019-12-31 19:59] VITALS: BP 147/86
== END 2019-12-31 20:12 | disposition home or self-care (01) ==
LOC: ED 18:56
DX: B34.9 Viral infection, unspecified (principal); J02.9 Acute pharyngitis, unspecified; F17.210 Nicotine dependence, cigarettes, uncomplicated; R50.9 Fever, unspecified; Z20.828 Contact with and (suspected) exposure to other viral communicable diseases
CPT/HCPCS: 87635; 99282

== ENCOUNTER 2024-01-30 19:37 | Inpatient (IN) ==
[2024-01-30 21:00] LABS: ABS Lymphocytes 2.1 10^3/uL (1.0-4.8); ABS Monocytes 0.6 10^3/uL (0.0-0.9); ABS Neutrophils 5.4 10^3/uL (1.5-7.6); Eosinophil % 0.2 %; Hematocrit 40.4 % (35-45); Lymphocyte % 25.4 %; Mean Corpuscular Hemoglobin 32.7 pg (27-33); Mean Corpuscular Hgb Conc 34.8 g/dL (31-36); Mean Corpuscular Volume 94.1 fL (80-97); Mean Platelet Volume 8.8 fL (7.5-11.2); Platelet Count 255 10^3/uL (150-450); Red Blood Count 4.29 10^6/uL (3.63-4.92); Red Cell Distribution Width 12.8 % (12-17); White Blood Count 8.1 10^3/uL (3.8-11.8)
[2024-01-30 21:49] LABS: ALT 8 U/L (7-52); AST 15 U/L (13-39); Acetaminophen < 15 mcg/mL; Albumin 4.4 g/dL (3.2-5.2); Albumin/Globulin Ratio 1.9 (1-3); Alcohol, S < 13 mg/dL (<13); Alkaline Phosphatase 64 U/L (35-149); Anion Gap 8 mmol/L (2-16); Blood Urea Nitrogen 9 mg/dL (6-24); CO2 Carbon Dioxide 27 mmol/L (22-32); Calcium 9.8 mg/dL (8.6-10.3); Chloride 103 mmol/L (101-111); Creatinine, Serum 0.84 mg/dL (0.51-0.95); Globulin 2.3 g/dL (2-4); Glucose 101 mg/dL (70-100); Potassium 3.6 mmol/L (3.5-5.0); Salicylate < 2.50 mg/dL (<30); Sodium 138 mmol/L (135-145); Total Protein 6.7 g/dL (6.4-8.9); eGFR CKD-EPI 75.6 (>60)
[2024-01-30 22:03] LABS: TSH Ultra Thyroid Stim Horm 1.19 mcIU/mL (0.34-5.60)
[2024-01-30 22:48] LABS: Urine Benzodiazepine Screen None Detected (None Detect); Urine Cannabinoids Screen None Detected (None Detect); Urine Opiates Screen None Detected (None Detect)
[2024-01-30 23:04] LABS: Urine Appearance Clear; Urine Bilirubin Negative (Negative); Urine Blood 1+ (Negative); Urine Color Light-Yellow; Urine Glucose Negative (Negative); Urine Ketones Negative (Negative); Urine Nitrite Negative (Negative); Urine Protein Negative (Negative); Urine Specific Gravity 1.005 (1.002-1.030); Urine Urobilinogen Negative (Negative)
[2024-01-30 23:09] LABS: Urine Bacteria 1+ /HPF (Absent); Urine Red Blood Cell 1+(3-5/hpf) /HPF (0-Trace); Urine Squamous Epithelial Cell Present /HPF (Absent); Urine White Blood Cell Trace(0-5/hpf) /HPF (0-Trace)
[2024-01-30 23:20] LABS: High Sensitivity Troponin 1 Hr 7 pg/mL (<15)
[2024-01-31] MEDS ORDERED: Nicotine GUM 4MG FRUIT FLAVOR PO ONE (12:10)
[2024-01-31] MEDS: Nicotine GUM 4MG FRUIT FLAVOR PO PRN (12:17)
[2024-01-31] MEDS: Nicotine PATCH 21 MG/24 HR PATCH TRANSDERM ONE (12:36)
[2024-02-01] MEDS: OLANZapine IM (NF) 10 MG VIAL IM ONE (05:35)
[2024-02-01] MEDS: Haloperidol 5 mg/ml SDV IV/IM 5 MG/ML AMP IM ONE ×2 (07:13→07:45)
[2024-02-01] MEDS: LORazepam 2 mg VIAL 1 ml IM ONE ×2 (07:14→07:45)
[2024-02-01] MEDS ORDERED: Lorazepam PYXIS KEY PRN (07:31)
[2024-02-01] MEDS ORDERED: LORazepam 2 mg VIAL 1 ml ONE (07:33)
[2024-02-01] MEDS ORDERED: Haloperidol 5 mg/ml SDV IV/IM 5 MG/ML AMP ONE (07:33)
[2024-02-02] MEDS: DULoxetine DR 30 mg CAP PO SCH (08:44)
[2024-02-02] MEDS ORDERED: Polyethylene Glycol 3350 17 GM PACKET PO PRN (15:47)
[2024-02-02] MEDS ORDERED: Senna TAB 8.6 mg TAB PO PRN (15:47)
[2024-02-03] MEDS: Haloperidol 5 mg/ml SDV IV/IM 5 MG/ML AMP IM ONE (01:40)
[2024-02-03] MEDS: Nicotine PATCH 21 MG/24 HR PATCH TRANSDERM PRN (10:51)
[2024-02-03] MEDS: Nicotine Lozenge mini 4 MG LOZNG.MINI MT PRN (19:48)
[2024-02-05] MEDS: PAIN RELIEVING RUB (MENTHOL/SALICYLATE) 1 APPLIC TUBE TOPICAL PRN (21:30)
[2024-02-07 09:17] VITALS: BP 114/74
== END 2024-02-07 11:11 | DRG 884 ==
LOC: ED 19:37 → EDHOLD 02-02 15:47 → SUATTDRO 02-02 15:47 → MED 02-02 19:49
PROVIDERS: ADMIT Internal Medicine; ATTEND Internal Medicine